=== PATIENT | female | born 1935 ===

== ENCOUNTER 2018-04-10 09:13 | Emergency (ER) | payer OTHER, SELFPAY ==
[2018-04-10] VITALS (7 sets, daily range): BP systolic 111–135; BP diastolic 53–94; PULSE 67–122; RESP 15–20; TEMP 36.4; O2SAT 96–99
--- NOTE | 2018-04-10 09:27 | ED.CHESTPAIN ---
HPI - Chest Pain General Chief Complaint: Chest Pain Stated Complaint: chest pain,difficulty breathing Time Seen by Provider: 04/10/18 09:27 Source: patient and family Mode of arrival: wheelchair Limitations: no limitations History of Present Illness HPI narrative: Patient noticed around 630 this morning that she was having palpitations. She states that she felt an irregular heartbeat and could hear her pulse in her left ear. Patient denies any chest pain; she did notice some lightheadedness when she stood up, and has been states he heard her breathing heavily when she was trying to walk back from the bathroom. Patient states that she did not have any nausea or vomiting, and that she does not feel short of breath laying in the bed. She states this has never happened to her before. She has a history of Cardiology follow-up for mitral valve prolapse, which she was diagnosed with in her young 20s. She denies any recent illnesses. and patient do state that they have had a stressful week, with the patient's father in law and dying, and couple of trips back and forth from [place]. However, she has no prior diagnosis of atrial fibrillation. She states her project consultant is through [facility]. She has formerly seen Dr. Reyna, but will now be seeing somebody else, as Dr. Reyna is no longer the clinic. No other complaints at this time. patient states she is otherwise healthy, and takes no medications. Some years ago, she was seen at a hospital in [facility], or again, and was told there that her troponins were elevated, and that she had had an NE. However, patient has been state that when she returned and saw her project consultant, the project consultant was upset, stating that they never have diagnosed her with an NE. It is not exactly clear what happened under these circumstances, but patient states that the ultimate vertigo it was that she had not had an NE. Severity scale (1-10): 2 ( Level of discomfort from palpitations) Related Data Home Medications Medication Instructions Recorded Confirmed [CALCIUM] #0 12/22/10 [FISH OIL] #0 12/22/10 [VITAMIN D] #0 12/22/10 Previous Rx's Medication Instructions Recorded omeprazole 20 mg PO QDAY #30 cap 02/19/16 potassium chloride 10 meq PO QAM #30 cap 09/28/16 diltiazem HCl [Cardizem CD] 120 mg PO DAILY #20 cap 04/10/18 Allergies Allergy/AdvReac Type Severity Reaction Status Date / Time nitrofurantoin AdvReac Mild N/V, JOINT Verified 04/10/18 09:26 PAIN Review of Systems Review of Systems All systems reviewed & are unremarkable except as noted in HPI and below Constitutional Denies chills, Denies fever(s), Denies lethargy and Denies weakness Eyes Denies change in vision, Denies eye discharge, Denies irritation and Denies loss of vision ENT Ears, Nose, Mouth, and Throat: Denies change in voice, Denies neck pain and Denies sore throat Cardiovascular Reports palpitations, Denies dyspnea and Denies dyspnea on exertion Respiratory Denies cough, Denies dyspnea, Denies dyspnea on exertion and Denies wheezing Gastrointestinal Gastrointestinal: Denies abdominal pain, Denies change in bowel habits, Denies diarrhea, Denies nausea and Denies vomiting Genitourinary Denies hematuria, Denies flank pain, Denies urinary incontinence and Denies urinary urgency Musculoskeletal Denies neck pain Integumentary/Breasts Denies pruritus, Denies erythema, Denies rash and Denies wounds Neurologic Denies confusion, Denies loss of vision and Denies weakness Psychiatric Denies anxiety, Denies confusion, Denies depression, Denies homicidal ideation and Denies suicidal ideation Endocrine Reports palpitations Hematologic/Lymphatic Denies easy bruising Allergic/Immunologic Denies wheezing [facility] Medical History Mitral valve prolapse (Acute) Social History Smoking Status: Never smoker Exam Initial Vital Signs Initial Vital Signs: Vital Signs Temperature 97.5 F L 04/10/18 09:22 Pulse Rate 116 H 04/10/18 09:22 Respiratory Rate 16 04/10/18 09:22 Blood Pressure 135/74 04/10/18 09:22 Pulse Oximetry 99 04/10/18 09:22 Const General: cooperative and well developed Nutritional Appearance: well nourished Orientation: alert, awake, oriented x3 and not confused HENNV Head: normocephalic and atraumatic Ears: external ears normal and TM's normal bilaterally Nose: external nose normal and No nasal discharge Face and sinus: face symmetric and sinus tenderness Mouth: oral mucosae normal and moist mucous membranes Teeth and gingiva: dentition normal Eyes General: appearance normal, both eyes and all related structures Eyelids: eyelids normal Conjunctivae: conjunctivae normal Sclera: sclerae normal Pupils: PERRL EOM: EOM intact bilaterally Neck Neck: normal visual inspection, trachea midline, No lymphadenopathy, No midline deformity and No JVD Lymphatic: No lymphedema Chest Chest: normal inspection of the chest Resp Effort & Inspection: normal respiratory effort, able to speak in complete sentences, no respiratory distress and no use of accessory muscles Auscultation: clear to auscultation bilaterally, no rales, no rhonchi and no wheezes Cardio Rate: tachycardic Rhythm: abnormal rhythm irregularly irregular Heart Sounds: no click, no gallops, no murmurs and no rubs Pulses: normal peripheral pulses GI Inspection: non-distended Palpation: soft, no hepatosplenomegaly, No guarding, No pulsatile mass and No tender Back/Spine/Pelvis Back: No CVA tenderness Cervical Spine: cervical ROM normal and No pain with cervical ROM Thoracic/Lumbar Spine: thoracic and lumbar spine normal to inspection Skin General: no rashes or lesions noted, No jaundice and No petechiae Neuro General: alert, oriented x3, gait normal and no focal motor deficits Speech: speech normal Extrem General: full ROM, no clubbing, cyanosis or edema, no pedal edema and no calf tenderness Psych Appearance: well kempt Mental Status: mental status grossly normal Attitude: cooperative Thought Content: normal and suicidality Judgment: judgment good Course Course Narrative: The patient was worked up in the emergency department, and treated with diltiazem and digoxin for her atrial fibrillation with rapid ventricular response. Labs were unremarkable, and patient ultimately did and responding well to the medication. She did convert back to a normal sinus rhythm with a rate in the 60s. I did discuss with the patient and her the need for follow-up. Patient is established with the [facility] cardiology clinic, and although her original project consultant, Dr. Reyna, has retired, she can follow up with one of his associates, as she has already been instructed to do. Patient states she is feeling much better and is agreeable to this plan. I have given her a prescription for diltiazem as an outpatient. Orders Ordered: Discontinued Medications Digoxin (Lanoxin) 0.125 mg PO NOW ONE Stop: 04/10/18 11:26 Last Admin: 04/10/18 11:35 Dose: 0.125 mg Diltiazem HCl (Cardizem) 5 mg IV NOW ONE Stop: 04/10/18 09:59 Last Admin: 04/10/18 10:06 Dose: 5 mg Diltiazem HCl (Cardizem) 15 mg IV NOW ONE Stop: 04/10/18 11:51 Last Admin: 04/10/18 12:22 Dose: 15 mg Sodium Chloride (Normal Saline 0.9%) 1,000 mls @ 1,000 mls/hr IV BOLUS ONE Stop: 04/10/18 10:57 Last Infusion: 04/10/18 11:16 Dose: 0 mls/hr Admin: 04/10/18 10:06 Dose: 1,000 mls/hr Vital Signs - 8 hr 04/10/18 09:22 Temperature 97.5 F L Pulse Rate 116 H Respiratory Rate 16 Blood Pressure 135/74 Pulse Oximetry 99 MDM - Chest Pain Medical Records Data Attestation: I reviewed the patient's medical records. Lab Data Attestation: I reviewed the patient's lab results. Result diagrams: 04/10/18 09:30 04/10/18 09:30 Lab Results 04/10/18 04/10/18 Range/Units 09:30 09:30 WBC 4.5 (4.5-11.0) X10^3/uL RBC 4.73 (4.0-5.2) X10^6/uL Hgb 15.0 (12.0-16.0) g/dL Hct 44.0 (36-46) % MCV 93.0 (80-100) fL MCH 31.6 (26-34) PG MCHC 34.0 (30-36) % RDW 13.2 (11.6-14.8) % Plt Count 224 (150-400) X10^3/uL Neut % (Auto) 47.3 L (50-75) % Lymph % (Auto) 40.0 (25-40) % [place] % (Auto) 8.6 (3-14) % Eos % (Auto) 3.2 (2-4) % Baso % (Auto) 0.9 (0-2) % Neut # (Auto) 2100 L (2329-5257) /uL Sodium 143 (137-145) mmol/L Potassium 4.4 (3.4-5.1) mmol/L Chloride 106 (98-107) mmol/L Carbon Dioxide 27 (22-32) mmol/L BUN 14 (7-17) mg/dL Creatinine 0.90 (0.52-1.04) mg/dL Estimated GFR > 60.0 (>60) mL/min BUN/Creatinine Ratio 15.6 (6-22) Glucose 126 H (80-110) mg/dL Calcium 9.5 (8.4-10.2) mg/dL Total Bilirubin 0.8 (0.2-1.3) mg/dL AST 55 H (14-36) IU/L ALT 29 (9-52) IU/L Alkaline Phosphatase 82 (38-126) U/L Total Creatine Kinase 53 (30-135) U/L CK-MB (CK-2) TNP CK-MB (CK-2) Rel Index TNP Troponin I < 0.012 (0.01-0.034) ng/mL Total Protein 7.3 (6.3-8.2) g/dL Albumin 4.3 (3.5-5.0) g/dL Globulin 3.0 (1.7-4.1) g/dL Albumin/Globulin Ratio 1.4 (1.0-2.8) ECG Data Attestation: I personally reviewed and interpreted this ECG as follows: ( See below) Interpretation: 12 lead EKG performed on April 10, 2018 at 9:19 a.m., as follows: Irregular ventricular rhythm with a rate of 121 beats per minute P waves undetectable PCR interval unmeasurable QRS duration 91 milliseconds QTC 372 milliseconds borderline right axis deviation occasional PVCs nonspecific ST T wave abnormalities in summary, atrial fibrillation with rapid ventricular response with aberrant conduction or PVCs; borderline right axis deviation; anteroseptal NE, probably old; abnormal EKG as interpreted by ED MDM Narrative Medical decision making narrative: patient was initially treated with IV diltiazem which improved her rate somewhat, but incompletely. Patient's rate was found to be creeping up in to the 120s and so she was given an oral dose of digoxin. She was also given a 2nd dose of diltiazem. After she did achieve conversion back to normal sinus rhythm, I felt she was stable for discharge home. We have discussed both the home management of the patient's condition, as well as the need for follow-up and the usual indications for return. Discharge Plan Departure Patient Disposition: Home Clinical Impression: Atrial fibrillation with RVR Discharge Date/Time: 04/10/18 13:03 Interventions: ED Discharge Assessment Last Done: 04/10/18 13:01 Instructions: DI for Atrial Fibrillation Activity Restrictions/Additional Instructions: Your heart was found to be in an abnormal rhythm today. You have been started on medication for this, but should plan to follow up with your project consultant as soon as possible to discuss a good long-term plan. If you start feeling as though your heart is racing too fast again, please return to the emergency department. Otherwise, please give your project consultant's office a call tomorrow. Prescriptions: New diltiazem HCl [Cardizem CD] 120 mg capsule,extended release 24hr 120 mg PO DAILY Qty: 20 RF: 0 No Action [CALCIUM] Qty: 0 RF: 0 [VITAMIN D] Qty: 0 RF: 0 [FISH OIL] Qty: 0 RF: 0 omeprazole 20 MG capsule,delayed release(DR/EC) 20 mg PO QDAY Qty: 30 RF: 0 potassium chloride 10 MEQ capsule, extended release 10 meq PO QAM Qty: 30 RF: 0 Referrals: [facility] Cardiology [Provider Group]
[2018-04-10] MEDS: SODIUM CHLORIDE 0.9% 1,000 ML 1000 ML IV (10:06)
[2018-04-10] MEDS: dilTIAZem 5 MG/ML SDV IV (10:06)
--- NOTE | 2018-04-10 10:06 | ED_ITS ---
HPI - Chest Pain General Chief Complaint: Chest Pain Stated Complaint: chest pain,difficulty breathing Time Seen by Provider: 04/10/18 09:27 Source: patient and family Mode of arrival: wheelchair Limitations: no limitations History of Present Illness HPI narrative: Patient noticed around 630 this morning that she was having palpitations. She states that she felt an irregular heartbeat and could hear her pulse in her left ear. Patient denies any chest pain; she did notice some lightheadedness when she stood up, and has been states he heard her breathing heavily when she was trying to walk back from the bathroom. Patient states that she did not have any nausea or vomiting, and that she does not feel short of breath laying in the bed. She states this has never happened to her before. She has a history of Cardiology follow-up for mitral valve prolapse, which she was diagnosed with in her young 20s. She denies any recent illnesses. and patient do state that they have had a stressful week, with the patient's father in law and dying, and couple of trips back and forth from [place]. However, she has no prior diagnosis of atrial fibrillation. She states her helper/driver is through [facility]. She has formerly seen Dr. Reyna, but will now be seeing somebody else, as Dr. Reyna is no longer the clinic. No other complaints at this time. patient states she is otherwise healthy, and takes no medications. Some years ago, she was seen at a hospital in [facility], or again, and was told there that her troponins were elevated, and that she had had an FL. However, patient has been state that when she returned and saw her helper/driver, the helper/driver was upset, stating that they never have diagnosed her with an FL. It is not exactly clear what happened under these circumstances, but patient states that the ultimate vertigo it was that she had not had an FL. Severity scale (1-10): 2 ( Level of discomfort from palpitations) Related Data Home Medications Medication Instructions Recorded Confirmed [CALCIUM] #0 12/22/10 [FISH OIL] #0 12/22/10 [VITAMIN D] #0 12/22/10 Previous Rx's Medication Instructions Recorded omeprazole 20 mg PO QDAY #30 cap 02/19/16 potassium chloride 10 meq PO QAM #30 cap 09/28/16 diltiazem HCl [Cardizem CD] 120 mg PO DAILY #20 cap 04/10/18 Allergies Allergy/AdvReac Type Severity Reaction Status Date / Time nitrofurantoin AdvReac Mild N/V, JOINT Verified 04/10/18 09:26 PAIN Review of Systems Review of Systems All systems reviewed & are unremarkable except as noted in HPI and below Constitutional Denies chills, Denies fever(s), Denies lethargy and Denies weakness Eyes Denies change in vision, Denies eye discharge, Denies irritation and Denies loss of vision ENT Ears, Nose, Mouth, and Throat: Denies change in voice, Denies neck pain and Denies sore throat Cardiovascular Reports palpitations, Denies dyspnea and Denies dyspnea on exertion Respiratory Denies cough, Denies dyspnea, Denies dyspnea on exertion and Denies wheezing Gastrointestinal Gastrointestinal: Denies abdominal pain, Denies change in bowel habits, Denies diarrhea, Denies nausea and Denies vomiting Genitourinary Denies hematuria, Denies flank pain, Denies urinary incontinence and Denies urinary urgency Musculoskeletal Denies neck pain Integumentary/Breasts Denies pruritus, Denies erythema, Denies rash and Denies wounds Neurologic Denies confusion, Denies loss of vision and Denies weakness Psychiatric Denies anxiety, Denies confusion, Denies depression, Denies homicidal ideation and Denies suicidal ideation Endocrine Reports palpitations Hematologic/Lymphatic Denies easy bruising Allergic/Immunologic Denies wheezing [facility] Medical History Mitral valve prolapse (Acute) Social History Smoking Status: Never smoker Exam Initial Vital Signs Initial Vital Signs: Vital Signs Temperature 97.5 F L 04/10/18 09:22 Pulse Rate 116 H 04/10/18 09:22 Respiratory Rate 16 04/10/18 09:22 Blood Pressure 135/74 04/10/18 09:22 Pulse Oximetry 99 04/10/18 09:22 Const General: cooperative and well developed Nutritional Appearance: well nourished Orientation: alert, awake, oriented x3 and not confused HENIL Head: normocephalic and atraumatic Ears: external ears normal and TM's normal bilaterally Nose: external nose normal and No nasal discharge Face and sinus: face symmetric and sinus tenderness Mouth: oral mucosae normal and moist mucous membranes Teeth and gingiva: dentition normal Eyes General: appearance normal, both eyes and all related structures Eyelids: eyelids normal Conjunctivae: conjunctivae normal Sclera: sclerae normal Pupils: PERRL EOM: EOM intact bilaterally Neck Neck: normal visual inspection, trachea midline, No lymphadenopathy, No midline deformity and No JVD Lymphatic: No lymphedema Chest Chest: normal inspection of the chest Resp Effort & Inspection: normal respiratory effort, able to speak in complete sentences, no respiratory distress and no use of accessory muscles Auscultation: clear to auscultation bilaterally, no rales, no rhonchi and no wheezes Cardio Rate: tachycardic Rhythm: abnormal rhythm irregularly irregular Heart Sounds: no click, no gallops, no murmurs and no rubs Pulses: normal peripheral pulses GI Inspection: non-distended Palpation: soft, no hepatosplenomegaly, No guarding, No pulsatile mass and No tender Back/Spine/Pelvis Back: No CVA tenderness Cervical Spine: cervical ROM normal and No pain with cervical ROM Thoracic/Lumbar Spine: thoracic and lumbar spine normal to inspection Skin General: no rashes or lesions noted, No jaundice and No petechiae Neuro General: alert, oriented x3, gait normal and no focal motor deficits Speech: speech normal Extrem General: full ROM, no clubbing, cyanosis or edema, no pedal edema and no calf tenderness Psych Appearance: well kempt Mental Status: mental status grossly normal Attitude: cooperative Thought Content: normal and suicidality Judgment: judgment good Course Course Narrative: The patient was worked up in the emergency department, and treated with diltiazem and digoxin for her atrial fibrillation with rapid ventricular response. Labs were unremarkable, and patient ultimately did and responding well to the medication. She did convert back to a normal sinus rhythm with a rate in the 60s. I did discuss with the patient and her the need for follow-up. Patient is established with the [facility] cardiology clinic, and although her original helper/driver, Dr. Reyna, has retired, she can follow up with one of his associates, as she has already been instructed to do. Patient states she is feeling much better and is agreeable to this plan. I have given her a prescription for diltiazem as an outpatient. Orders Ordered: Discontinued Medications Digoxin (Lanoxin) 0.125 mg PO NOW ONE Stop: 04/10/18 11:26 Last Admin: 04/10/18 11:35 Dose: 0.125 mg Diltiazem HCl (Cardizem) 5 mg IV NOW ONE Stop: 04/10/18 09:59 Last Admin: 04/10/18 10:06 Dose: 5 mg Diltiazem HCl (Cardizem) 15 mg IV NOW ONE Stop: 04/10/18 11:51 Last Admin: 04/10/18 12:22 Dose: 15 mg Sodium Chloride (Normal Saline 0.9%) 1,000 mls @ 1,000 mls/hr IV BOLUS ONE Stop: 04/10/18 10:57 Last Infusion: 04/10/18 11:16 Dose: 0 mls/hr Admin: 04/10/18 10:06 Dose: 1,000 mls/hr Vital Signs - 8 hr 04/10/18 09:22 Temperature 97.5 F L Pulse Rate 116 H Respiratory Rate 16 Blood Pressure 135/74 Pulse Oximetry 99 MDM - Chest Pain Medical Records Data Attestation: I reviewed the patient's medical records. Lab Data Attestation: I reviewed the patient's lab results. Result diagrams: 04/10/18 09:30 04/10/18 09:30 Lab Results 04/10/18 04/10/18 Range/Units 09:30 09:30 WBC 4.5 (4.5-11.0) X10^3/uL RBC 4.73 (4.0-5.2) X10^6/uL Hgb 15.0 (12.0-16.0) g/dL Hct 44.0 (36-46) % MCV 93.0 (80-100) fL MCH 31.6 (26-34) PG MCHC 34.0 (30-36) % RDW 13.2 (11.6-14.8) % Plt Count 224 (150-400) X10^3/uL Neut % (Auto) 47.3 L (50-75) % Lymph % (Auto) 40.0 (25-40) % [place] % (Auto) 8.6 (3-14) % Eos % (Auto) 3.2 (2-4) % Baso % (Auto) 0.9 (0-2) % Neut # (Auto) 2100 L (2151-8947) /uL Sodium 143 (137-145) mmol/L Potassium 4.4 (3.4-5.1) mmol/L Chloride 106 (98-107) mmol/L Carbon Dioxide 27 (22-32) mmol/L BUN 14 (7-17) mg/dL Creatinine 0.90 (0.52-1.04) mg/dL Estimated GFR > 60.0 (>60) mL/min BUN/Creatinine Ratio 15.6 (6-22) Glucose 126 H (80-110) mg/dL Calcium 9.5 (8.4-10.2) mg/dL Total Bilirubin 0.8 (0.2-1.3) mg/dL AST 55 H (14-36) IU/L ALT 29 (9-52) IU/L Alkaline Phosphatase 82 (38-126) U/L Total Creatine Kinase 53 (30-135) U/L CK-MB (CK-2) TNP CK-MB (CK-2) Rel Index TNP Troponin I < 0.012 (0.01-0.034) ng/mL Total Protein 7.3 (6.3-8.2) g/dL Albumin 4.3 (3.5-5.0) g/dL Globulin 3.0 (1.7-4.1) g/dL Albumin/Globulin Ratio 1.4 (1.0-2.8) ECG Data Attestation: I personally reviewed and interpreted this ECG as follows: ( See below) Interpretation: 12 lead EKG performed on April 10, 2018 at 9:19 a.m., as follows: Irregular ventricular rhythm with a rate of 121 beats per minute P waves undetectable PCR interval unmeasurable QRS duration 91 milliseconds QTC 372 milliseconds borderline right axis deviation occasional PVCs nonspecific ST T wave abnormalities in summary, atrial fibrillation with rapid ventricular response with aberrant conduction or PVCs; borderline right axis deviation; anteroseptal FL, probably old; abnormal EKG as interpreted by ED MDM Narrative Medical decision making narrative: patient was initially treated with IV diltiazem which improved her rate somewhat, but incompletely. Patient's rate was found to be creeping up in to the 120s and so she was given an oral dose of digoxin. She was also given a 2nd dose of diltiazem. After she did achieve conversion back to normal sinus rhythm, I felt she was stable for discharge home. We have discussed both the home management of the patient's condition, as well as the need for follow-up and the usual indications for return. Discharge Plan Departure Patient Disposition: Home Clinical Impression: Atrial fibrillation with RVR Discharge Date/Time: 04/10/18 13:03 Interventions: ED Discharge Assessment Last Done: 04/10/18 13:01 Instructions: DI for Atrial Fibrillation Activity Restrictions/Additional Instructions: Your heart was found to be in an abnormal rhythm today. You have been started on medication for this, but should plan to follow up with your helper/driver as soon as possible to discuss a good long-term plan. If you start feeling as though your heart is racing too fast again, please return to the emergency department. Otherwise, please give your helper/driver's office a call tomorrow. Prescriptions: New diltiazem HCl [Cardizem CD] 120 mg capsule,extended release 24hr 120 mg PO DAILY Qty: 20 RF: 0 No Action [CALCIUM] Qty: 0 RF: 0 [VITAMIN D] Qty: 0 RF: 0 [FISH OIL] Qty: 0 RF: 0 omeprazole 20 MG capsule,delayed release(DR/EC) 20 mg PO QDAY Qty: 30 RF: 0 potassium chloride 10 MEQ capsule, extended release 10 meq PO QAM Qty: 30 RF: 0 Referrals: [facility] Cardiology [Provider Group]
[2018-04-10 10:12] LABS: Add Manual Diff / Slide Review NO; Basophils Percent Auto 0.9 % (0-2); Eosinophils Percent Auto 3.2 % (2-4); Mean Corpuscular Hemoglobin 31.6 PG (26-34); Monocytes Percent Auto 8.6 % (3-14); Neutrophils Absolute Auto 2100 /uL (3000-5900); Neutrophils Percent Auto 47.3 % (50-75); Platelet Count 224 X10^3/uL (150-400); Red Blood Cell Count 4.73 X10^6/uL (4.0-5.2); Red Cell Distribution Width 13.2 % (11.6-14.8); White Blood Cell Count 4.5 X10^3/uL (4.5-11.0)
[2018-04-10 10:16] LABS: Alanine Aminotransferase 29 IU/L (9-52); Albumin 4.3 g/dL (3.5-5.0); Albumin Globulin Ratio 1.4 (1.0-2.8); Alkaline Phosphatase 82 U/L (38-126); Aspartate Aminotransferase 55 IU/L (14-36); BUN Creatinine Ratio 15.6 (6-22); Bilirubin Total 0.8 mg/dL (0.2-1.3); Blood Urea Nitrogen 14 mg/dL (7-17); Calcium 9.5 mg/dL (8.4-10.2); Carbon Dioxide 27 mmol/L (22-32); Chloride 106 mmol/L (98-107); Creatine Kinase 53 U/L (30-135); Estimated Glomerular Filt Rate > 60.0 mL/min (>60); Glucose 126 mg/dL (80-110); HEMOLYSIS 20 (0-50); Potassium 4.4 mmol/L (3.4-5.1); Sodium 143 mmol/L (137-145); Total Protein 7.3 g/dL (6.3-8.2)
[2018-04-10 10:37] LABS: Troponin I < 0.012 ng/mL (0.01-0.034)
[2018-04-10] MEDS: DIGOXIN 0.125 MG TABLET PO (11:35)
[2018-04-10] MEDS: dilTIAZem 5 MG/ML SDV 15 MG IV (12:22)
--- NOTE | 2018-04-12 14:49 | PC.NURSE ---
Pt states that she has followed up with pcp. Pt states everything seems to be find and is also going to followup with cardiology. Pt states that she really appreciates what we did for her,the whole staff was great.
== END 2018-04-10 13:03 | disposition home or self-care (01) ==
PROVIDERS: Emergency Provider Emergency Medicine
DX: I48.91 Unspecified atrial fibrillation (principal)
CPT/HCPCS: 36591; 80053; 82550; 84484; 85025; 93005; 96361; 96374; 96376; 99283; 99284

== ENCOUNTER → 2018-06-07 11:51 | Outpatient (CLI) | payer OTHER, SELFPAY ==
--- NOTE | 2018-06-07 | DI.MG.S_ITS ---
BILATERAL DIGITAL SCREENING MAMMOGRAM 3D/2D WITH CAD: 06/07/2018 CLINICAL: Routine screening. Comparison is made to exams dated: 04/12/2017 mammogram, 03/31/2016 mammogram, and 07/17/2010 mammogram - [facility]. The tissue of both breasts is heterogeneously dense. This may lower the sensitivity of mammography. Current study was also evaluated with a Computer Aided Detection (CAD) system. There is a benign biopsy clip in the right breast. No significant masses, calcifications, or other findings are seen in either breast. There has been no significant interval change. IMPRESSION: NEGATIVE There is no mammographic evidence of malignancy. A 1 year screening mammogram is recommended. This exam was interpreted at Station ID: [id number]. NOTE: For mammograms, a report in lay terms will be sent to the patient. Approximately 15% of breast malignancies will not be visualized mammographically. In the management of a palpable breast mass, a negative mammogram must not discourage biopsy of a clinically suspicious lesion. Electronically Signed By: Hany cole/linda:06/07/2018 13:56:04 letter sent: Normal Exam ACR BI-RADS Category 1: Negative [id number]
== END ==
PROVIDERS: PCP Physician Assistant; Visit Provider Physician Assistant
DX: Z12.31 Encounter for screening mammogram for malignant neoplasm of breast (principal)
CPT/HCPCS: 77063; 77067

== ENCOUNTER → 2018-09-12 13:31 | Outpatient (CLI) | payer OTHER, SELFPAY ==
--- NOTE | 2018-09-12 | DI.US.S_ITS ---
PROCEDURE: US RETRO PERITONEAL LIMITED INDICATIONS: ABDOMINAL AORTIC ANEURYSM WITHOUT RUPTURE TECHNIQUE: Real time scanning was performed of the aorta and iliac arteries, with image documentation. COMPARISON: None. FINDINGS: Aorta: Proximal aortic diameter measures 1.9 cm. Mid-aorta measures 1.7 cm. Distal aortic diameter is 1.6 cm. Iliac arteries: Right common iliac artery measures 0.9 cm. Left common iliac artery measures 1.0 cm. IMPRESSION: No aneurysm found, no suspicion for aortic dissection. Minimal scattered atherosclerotic plaquing. Dictated by: David Vanessa M.D. on 09/12/2018 at 15:24 Approved by: David Vanessa M.D. on 09/12/2018 at 15:25
== END ==
PROVIDERS: PCP Physician Assistant; Visit Provider Physician Assistant
DX: I71.4 Abdominal aortic aneurysm, without rupture (principal)
CPT/HCPCS: 76775

== ENCOUNTER → 2019-03-03 13:58 | Outpatient (CLI) | payer OTHER, SELFPAY ==
--- NOTE | 2019-03-03 | DI.RAD.S_ITS ---
PROCEDURE: XR KNEE RT 3V INDICATIONS: PAIN TECHNIQUE: 3 views of the knee were acquired. COMPARISON: [facility], , KNEE 3V RIGHT, 04/18/2007, 9:57. FINDINGS: Bones: No fractures or dislocations. No suspicious bony lesions. There is worsening degenerative osteoarthritis at the right knee joint, best seen at the lateral facet of the patellofemoral joint were no [id number] articulation is present Soft tissues: No joint effusion. No suspicious soft tissue calcifications. IMPRESSION: No acute trauma found. Worsening degenerative knee joint osteoarthritis most convincingly demonstrated at the lateral facet of the patellofemoral joint where previously mild joint space narrowing was present but currently there now is [id number] articulation between the articular surfaces. Dictated by: David Vanessa M.D. on 03/03/2019 at 15:07 Approved by: David Vanessa M.D. on 03/03/2019 at 15:08
[2019-03-03 15:00] LABS: Add Manual Diff / Slide Review NO; Basophils Absolute Auto 100 /uL (0-100); Basophils Percent Auto 0.7 % (0-2); Eosinophils Absolute Auto 0 /uL (0-450); Eosinophils Percent Auto 0.2 % (2-4); Hematocrit 40.4 % (36-46); Hemoglobin 13.5 g/dL (12.0-16.0); Lymphocytes Absolute Auto 800 /uL (1100-4500); Lymphocytes Percent Auto 11.8 % (25-40); Mean Corpuscular HGB Conc 33.3 % (30-36); Mean Corpuscular Hemoglobin 30.9 PG (26-34); Mean Corpuscular Volume 92.8 fL (80-100); Monocytes Absolute Auto 800 /uL (0-900); Monocytes Percent Auto 11.5 % (3-14); Neutrophils Absolute Auto 5400 /uL (1500-7000); Neutrophils Percent Auto 75.8 % (50-75); Platelet Count 221 X10^3/uL (150-400); Red Blood Cell Count 4.35 X10^6/uL (4.0-5.2); Red Cell Distribution Width 13.2 % (11.6-14.8); White Blood Cell Count 7.2 X10^3/uL (4.5-11.0)
[2019-03-03 15:27] LABS: Erythrocyte Sedimentation Rate 23 MM/HR (0-20)
[2019-03-03 16:05] LABS: Alanine Aminotransferase 15 IU/L (9-52); Albumin 4.2 g/dL (3.5-5.0); Albumin Globulin Ratio 1.2 (1.0-2.8); Alkaline Phosphatase 80 U/L (38-126); Aspartate Aminotransferase 31 IU/L (14-36); Blood Urea Nitrogen 12 mg/dL (7-17); C-Reactive Protein Quant 2.7 mg/dL (<1.0); Calcium 9.4 mg/dL (8.4-10.2); Carbon Dioxide 29 mmol/L (22-32); Chloride 100 mmol/L (98-107); Estimated Glomerular Filt Rate > 60.0 mL/min (>60); Globulin 3.4 g/dL (1.7-4.1); Glucose 100 mg/dL (80-110); HEMOLYSIS < 15 (0-50); Potassium 4.3 mmol/L (3.4-5.1); Sodium 136 mmol/L (137-145); Total Protein 7.6 g/dL (6.3-8.2); Uric Acid 4.7 mg/dL (2.5-6.2)
== END ==
PROVIDERS: PCP Physician Assistant; Visit Provider Physician Assistant
DX: M25.561 Pain in right knee (principal)
CPT/HCPCS: 36415; 73562; 80053; 84550; 85025; 85651; 86140

== ENCOUNTER → 2019-04-04 13:10 | Outpatient (ROUT) | payer OTHER, SELFPAY | PROVIDERS: PCP Physician Assistant; Visit Provider Physician Assistant | DX: N39.0 Urinary tract infection, site not specified (principal) | CPT/HCPCS: 87086 ==

== ENCOUNTER 2019-06-10 10:02 | Emergency (ER) | payer OTHER, SELFPAY ==
[2019-06-10 10:11] VITALS: BP 167/76; PULSE 67; RESP 14; TEMP 36.3; O2SAT 100; BMI 20.1
--- NOTE | 2019-06-10 10:11 | ED_ITS ---
HPI - GI Bleed General Chief complaint: GI Bleed Stated complaint: BLACK STOOL Time Seen by Provider: 06/10/19 10:11 Source: patient Mode of arrival: Ambulatory Limitations: no limitations History of Present Illness HPI Narrative: Patient is a trung 84-year-old female on Xarelto for atrial fibrillation presenting with black stool, she has had 1 episode this morning. She brought a sample on toilet paper. She denies any bright red blood she has no abdominal pain. She denies any a pain vomiting dizziness lightheadedness chest pain or shortness of breath. She is here because the nursing hotline told her to come. She states she is not taking any iron and has not taken any recent Pepto-Bismol Severity: mild Related Data Home Medications Medication Instructions Recorded Confirmed [CALCIUM] #0 12/22/10 [FISH OIL] #0 12/22/10 [VITAMIN D] #0 12/22/10 diltiazem HCl 120 mg 120 mg PO .PRN cap 11/16/18 capsule,extended release 24 hr omeprazole 20 mg capsule,delayed 20 mg PO .prn cap 11/16/18 release Previous Rx's Medication Instructions Recorded rivaroxaban 20 mg tablet 20 mg PO DAILY #90 tab 11/16/18 varicella-zoster [id number] (PF) 50 0.5 ml IM ONCE #1 each 11/16/18 mcg/0.5 mL IM susp, kit Allergies Allergy/AdvReac Type Severity Reaction Status Date / Time nitrofurantoin AdvReac Mild N/V, JOINT Verified 11/16/18 10:43 PAIN Review of Systems Review of Systems Narrative: GENERAL: Denies chills, fatigue, malaise, fever, sweats, travel HEENT: Denies sinus pain, ear pain, sore throat, difficulty swallowing, neck pa in RESPIRATORY: Denies dyspnea, cough, wheezing, hemoptysis, sputum. CARDIOVASCULAR: Denies chest pain, palpitations, orthopnea, edema GASTROINTESTINAL: See HPI : Denies dysuria, frequency, incontinence, hematuria, urinary retention, flank pain. MUSCULOSKELETAL: Denies weakness, joint pain, or bony pain SKIN: No rash, no erythema, no pruritus NEUROLOGIC: Denies weakness, dizziness, headache, numbness, change in speech, confusion PSYCHIATRIC: No concerning psychosocial issues. 12 point review of systems is negative except for those stated above and HPI Patient History Medical History Anemia (Chronic) Atrial fibrillation (Chronic ~2018) Frequent UTI (Chronic) GERD (gastroesophageal reflux disease) (Chronic ~2016) Headache (Chronic) Hearing loss (Chronic) Hepatitis (Resolved ~1943) Herpes (Resolved) History of recurrent ear infection (Chronic) History of varicose veins (Chronic) Measles (Resolved) Mitral valve prolapse (Chronic) Mumps (Resolved) Osteoarthritis (Chronic ~1994) Osteoporosis (Chronic ~1987) Peripheral vascular disease (Chronic) Shoulder pain (Chronic) Vision disorder (Chronic) Surgical History Anesthesia (Resolved) History of bladder surgery (Resolved) History of tonsillectomy and adenoidectomy (Resolved ~1951) Family History Father History of heart disease Mother History of heart disease Social History Smoking Status: Never smoker Smoking Status: Never smoker alcohol intake frequency: holidays/special occasions only Substance Use Type: marijuana Exam Initial Vital Signs Initial Vital Signs: Vital Signs Temperature 97.3 F L 06/10/19 10:11 Pulse Rate 67 06/10/19 10:11 Respiratory Rate 14 06/10/19 10:11 Blood Pressure 167/76 H 06/10/19 10:11 Pulse Oximetry 100 06/10/19 10:11 GENERAL: Alert pleasant well-appearing female and in no acute distress. HEENT: Head atraumatic,EOMI, pupils reactive, face symmetric, moist mucous membranes CARDIOVASCULAR: Regular rate and rhythm without murmurs, rubs or gallops. RESPIRATORY: Breath sounds equal bilaterally, no wheezes rales or rhonchi. ABDOMEN: Soft, nontender. Normoactive bowel sounds all 4 quadrants. No guarding or rebound. RECTAL: No gross blood, Hemoccult negative both on digital exam and on tissue paper : No flank pain EXTREMITIES: Normal range of motion, no clubbing or edema. Neurovascularly intact NEUROLOGICAL: Alert and oriented x4.Normal gait and speech. Cranial nerves II through XII grossly intact. SKIN: Warm, dry, no laceration, no petechiae, no rashes or lesions. Course Orders Ordered: ED Orders 06/10/19 10:13 EKG-12 Lead Routine 06/10/19 10:35 Complete Blood Count AUTO DIFF Stat Comprehensive Metabolic Panel Stat Partial Thromboplastin Time Stat Prothrombin Time INR Stat Type and Screen Stat Vital Signs Vital signs: Vital Signs - 8 hr 06/10/19 11:00 06/10/19 12:30 Pulse Rate 69 61 Respiratory Rate 18 21 Blood Pressure [Right Arm] 155/68 H 145/66 H Pulse Oximetry 99 99 MDM - GI Bleed Lab Data Attestation: I reviewed the patient's lab results. Result diagrams: 06/10/19 10:35 06/10/19 10:35 Labs: Lab Results 06/10/19 06/10/19 06/10/19 Range/Units 10:35 10:35 10:35 WBC 3.7 L (4.5-11.0) X10^3/uL RBC 4.34 (4.0-5.2) X10^6/uL Hgb 13.4 (12.0-16.0) g/dL Hct 40.6 (36-46) % MCV 93.5 (80-100) fL MCH 30.8 (26-34) PG MCHC 33.0 (30-36) % RDW 13.3 (11.6-14.8) % Plt Count 200 (150-400) X10^3/uL Neut % (Auto) 58.9 (50-75) % Lymph % (Auto) 28.6 (25-40) % [place] % (Auto) 8.9 (3-14) % Eos % (Auto) 2.7 (2-4) % Baso % (Auto) 0.9 (0-2) % Neut # (Auto) 2200 (8896-8358) /uL Lymph # (Auto) 1000 L (5922-3765) /uL [place] # (Auto) 300 (0-900) /uL Eos # (Auto) 100 (0-450) /uL Baso # (Auto) 0 (0-100) /uL PT 12.5 (10.1-12.7) SECONDS INR 1.1 (0.9-1.3) APTT 37 H (26.4-36.2) SECONDS Sodium 139 (137-145) mmol/L Potassium 4.3 (3.4-5.1) mmol/L Chloride 105 (98-107) mmol/L Carbon Dioxide 29 (22-32) mmol/L BUN 15 (7-17) mg/dL Creatinine 0.80 (0.52-1.04) mg/dL Estimated GFR > 60.0 (>60) mL/min BUN/Creatinine Ratio 18.8 (6-22) Glucose 88 (80-110) mg/dL Calcium 9.2 (8.4-10.2) mg/dL Total Bilirubin 0.8 (0.2-1.3) mg/dL AST 35 (14-36) IU/L ALT 20 (<35) IU/L Alkaline Phosphatase 71 (38-126) U/L Total Protein 7.4 (6.3-8.2) g/dL Albumin 4.2 (3.5-5.0) g/dL Globulin 3.2 (1.7-4.1) g/dL Albumin/Globulin Ratio 1.3 (1.0-2.8) Blood Type Antibody Screen 06/10/19 Range/Units 10:35 WBC (4.5-11.0) X10^3/uL RBC (4.0-5.2) X10^6/uL Hgb (12.0-16.0) g/dL Hct (36-46) % MCV (80-100) fL MCH (26-34) PG MCHC (30-36) % RDW (11.6-14.8) % Plt Count (150-400) X10^3/uL Neut % (Auto) (50-75) % Lymph % (Auto) (25-40) % [place] % (Auto) (3-14) % Eos % (Auto) (2-4) % Baso % (Auto) (0-2) % Neut # (Auto) (0620-5100) /uL Lymph # (Auto) (9555-4615) /uL [place] # (Auto) (0-900) /uL Eos # (Auto) (0-450) /uL Baso # (Auto) (0-100) /uL PT (10.1-12.7) SECONDS INR (0.9-1.3) APTT (26.4-36.2) SECONDS Sodium (137-145) mmol/L Potassium (3.4-5.1) mmol/L Chloride (98-107) mmol/L Carbon Dioxide (22-32) mmol/L BUN (7-17) mg/dL Creatinine (0.52-1.04) mg/dL Estimated GFR (>60) mL/min BUN/Creatinine Ratio (6-22) Glucose (80-110) mg/dL Calcium (8.4-10.2) mg/dL Total Bilirubin (0.2-1.3) mg/dL AST (14-36) IU/L ALT (<35) IU/L Alkaline Phosphatase (38-126) U/L Total Protein (6.3-8.2) g/dL Albumin (3.5-5.0) g/dL Globulin (1.7-4.1) g/dL Albumin/Globulin Ratio (1.0-2.8) Blood Type AB Positive Antibody Screen Negative Point of Care Testing Stool Occult Blood Negative MDM Narrative Medical decision making narrative: Negative hemoglobin and hematocrit are stable. At this time no evidence of GI bleed. Discharge Plan Departure Patient Disposition: Home Clinical Impression: Feared complaint without diagnosis Discharge Date/Time: 06/10/19 12:52 Instructions: Gastrointestinal Bleeding Activity Restrictions/Additional Instructions: *You have been diagnosed with no internal bleeding was found *What to do: Blood work overall is reassuring. No blood in stool is identified *Continue to take medications as directed *Follow up with your primary care provider in 2-3 days *Return to ER if you should have persistent multiple black stools, bright red blood, abdominal pain dizziness lightheadedness or any new, worsening or concerning symptoms Prescriptions: No Action [CALCIUM] Qty: 0 RF: 0 [VITAMIN D] Qty: 0 RF: 0 [FISH OIL] Qty: 0 RF: 0 diltiazem HCl [Cardizem CD] 120 mg capsule,extended release 24hr 120 mg PO .PRN RF: 0 omeprazole 20 mg capsule,delayed release(DR/EC) 20 mg PO .prn RF: 0 Xarelto 20 mg tablet 20 mg PO DAILY Qty: 90 RF: 0 Shingrix (PF) 50 mcg/0.5 mL suspension for reconstitution 0.5 ml IM ONCE Qty: 1 RF: 0 Referrals: Maryjo Zamora PA-C [Primary Care Provider] -
[2019-06-10 10:30] VITALS: BP 171/92; PULSE 56; RESP 14; O2SAT 100
[2019-06-10 10:59] LABS: Add Manual Diff / Slide Review NO; Basophils Absolute Auto 0 /uL (0-100); Basophils Percent Auto 0.9 % (0-2); Eosinophils Absolute Auto 100 /uL (0-450); Eosinophils Percent Auto 2.7 % (2-4); Hematocrit 40.6 % (36-46); Hemoglobin 13.4 g/dL (12.0-16.0); Lymphocytes Absolute Auto 1000 /uL (1100-4500); Lymphocytes Percent Auto 28.6 % (25-40); Mean Corpuscular Hemoglobin 30.8 PG (26-34); Mean Corpuscular Volume 93.5 fL (80-100); Monocytes Absolute Auto 300 /uL (0-900); Monocytes Percent Auto 8.9 % (3-14); Neutrophils Absolute Auto 2200 /uL (1500-7000); Neutrophils Percent Auto 58.9 % (50-75); Platelet Count 200 X10^3/uL (150-400); Red Blood Cell Count 4.34 X10^6/uL (4.0-5.2); Red Cell Distribution Width 13.3 % (11.6-14.8); White Blood Cell Count 3.7 X10^3/uL (4.5-11.0)
[2019-06-10 11:00] VITALS: BP 155/68; PULSE 69; RESP 18; O2SAT 99
[2019-06-10 11:02] LABS: INR 1.1 (0.9-1.3); Prothrombin Time 12.5 SECONDS (10.1-12.7)
[2019-06-10 11:05] LABS: PTT Partial Thromboplastin Tim 37 SECONDS (26.4-36.2)
[2019-06-10 11:06] LABS: Alanine Aminotransferase 20 IU/L (<35); Albumin 4.2 g/dL (3.5-5.0); Albumin Globulin Ratio 1.3 (1.0-2.8); Alkaline Phosphatase 71 U/L (38-126); Aspartate Aminotransferase 35 IU/L (14-36); BUN Creatinine Ratio 18.8 (6-22); Bilirubin Total 0.8 mg/dL (0.2-1.3); Blood Urea Nitrogen 15 mg/dL (7-17); Calcium 9.2 mg/dL (8.4-10.2); Carbon Dioxide 29 mmol/L (22-32); Chloride 105 mmol/L (98-107); Estimated Glomerular Filt Rate > 60.0 mL/min (>60); Globulin 3.2 g/dL (1.7-4.1); Glucose 88 mg/dL (80-110); HEMOLYSIS 34 (0-50); Potassium 4.3 mmol/L (3.4-5.1); Sodium 139 mmol/L (137-145); Total Protein 7.4 g/dL (6.3-8.2)
[2019-06-10 12:30] VITALS: BP 145/66; PULSE 61; RESP 21; O2SAT 99
== END 2019-06-10 12:52 | disposition home or self-care (01) ==
PROVIDERS: Emergency Provider Emergency Medicine; PCP Physician Assistant
DX: K92.1 Melena (principal)
CPT/HCPCS: 36415; 80053; 82272; 85025; 85610; 85730; 86850; 86900; 86901; 93005; 99284

== ENCOUNTER → 2020-01-12 08:52 | Outpatient (CLI) | payer OTHER, SELFPAY ==
--- NOTE | 2020-01-12 | DI.ECHO.S_ITS ---
[facility]---------+ [facility] +---------+ : : [address] [place] : : : : [phone] : : : : Phone: [phone]+ Echocardiogram Report + + :Name: RANDELL RODRÍGUEZ Study Date: 01/12/2020 Height: 62 in : :[facility] Weight: 114 lb : : Gender: Female BSA: 1.5 m2 : :: 1935 Age: 84 yrs BP: 111/80 mmHg: :Reason For Study: Atrial fibrillation - paroxysmal : :Ordering Physician: : :Vipul Rivas M.D. Performed By: Tere Page : + + Interpretation Summary The mitral valve leaflets appear myxomatous. There is moderate bileaflet prolapse. Visually and by color Doppler only, the mitral regurgitation is not severe; however, the ject is eccentric and wraps in the posterior left atrium with Coanda effect. There is systolic flow reversal in the pulmonary venin flow, indicating severe mitral regurgitation. No significant pulmonary hypertension. The LVEF is >65%. Patient appears to be now in atrial fibrillation which is new compared to the prior study. No other significant change. Procedure: A two-dimensional transthoracic echocardiogram with color flow and Doppler was performed. The study quality was technically adequate. Comparison is made with the echocardiogram of 07/01/2018. The patient was in atrial fibrillation with heart rates between 81-121 bpm during the exam. Left Ventricle: The left ventricle is normal in size. Proximal septal thickening is noted. The ejection fraction is estimated to be 65-70%. There are no focal wall motion abnormalities. There is a significant dyssynchronous contraction pattern, consistent with a conduction abnormality. Diastolic function could not be accurately assessed due to atrial fibrillation. Right Ventricle: The right ventricle is normal size. The right ventricle is hyperdynamic. Atria: The left atrium is severely dilated. The left atrium has mildly increased in size since the prior echo exam. The right atrium is mildly dilated. The right atrium has significantly increased in size since the prior echo exam. There is no Doppler evidence for an interatrial shunt. Mitral Valve: The mitral valve leaflets appear moderately thickened, but open well. The mitral valve leaflets appear myxomatous. Mitral valve prolapse is present. There is severe mitral regurgitation. The mitral regurgitant jet is eccentrically directed. Aortic Valve: The aortic valve is trileaflet. The aortic valve opens well. There is trace aortic regurgitation. Tricuspid Valve: There appears to be borderline prolapse of the tricuspid valve. There is mild tricuspid regurgitation. The right ventricular systolic pressure is estimated to be at least 30 mmHg based on an estimated right atrial pressure of 8 mm Hg. Pulmonic Valve: The pulmonic valve is not well seen, but is grossly normal. There is trace pulmonic regurgitation. Great Vessels: The aortic root is normal size. The ascending aorta is normal in size. The pulmonary artery is not well visualized, but is probably normal size. The IVC is dilated (diameter is greater than 2.1 cm) yet it collapses greater than 50% with a sniff. This suggests a right atrial pressure of 8 mm Hg. Pericardium/ Pleura There is no pericardial effusion. There is no pleural effusion. MMode/2D Measurements & Calculations LVIDd: 4.3 cm LVOT diam: 1.8 cm LVIDs: 2.5 cm Ao root diam: 3.5 cm FS: 40.8 % asc Aorta Diam: 3.1 cm IVSd: 1.0 cm LVPWd: 0.71 cm LV rider. diameter/BSA (cm/m^2): 2.8 LV sys. diameter/BSA (cm/m^2): 1.7 LA A2 area: 28.3 cm2 RA long axis: 4.6 cm LA A4 area: 20.9 cm2 RA area: 15.8 cm2 LA length (vol): 5.3 cm RA vol: 46.0 ml LA vol: 94.0 ml RA : 30.5 ml/m2 LA vol index: 62.4 ml/m2 IVC diam: 2.2 cm RVD1 (basal): 3.1 cm Doppler Measurements & Calculations Ao V2 max: 127.8 cm/sec LVOT Max Christophe: 68.1 cm/sec Ao V2 mean: 83.8 cm/sec LV V1 max P.9 mmHg Ao max P.6 mmHg LV V1 VTI: 8.9 cm Ao mean P.2 mmHg CARLOS EDUARDO(I,D): 1.6 cm2 Ao V2 VTI: 14.7 cm CARLOS EDUARDO(V,D): 1.4 cm2 sev ratio: 0.61 CARLOS EDUARDO indexed to BSA (cm^2/m^2): 1.0 AI P1/2t: 516.3 msec AI dec slope: 262.7 cm/sec2 MV P1/2t: 62.3 msec TR max christophe: 233.4 cm/sec MVA(VTI): 0.69 cm2 TR max P.9 mmHg PA V2 max: 70.0 cm/sec PA V2 mean: 47.6 cm/sec PA mean P.1 mmHg PA Accel Time: 0.09 sec MV V2 mean: 103.8 cm/sec MV P1/2t max christophe: 131.6 cm/sec MV mean P.1 mmHg MVA(P1/2t): 3.5 cm2 MV V2 VTI: 33.2 cm SV(LVOT): 22.9 ml Electronically signed by: Vipul Rivas M.D. on Reading Physician:01/15/2020 05:13 PM
== END ==
PROVIDERS: PCP Physician Assistant; Referring Provider Hospitalist; Visit Provider Hospitalist
DX: I08.1 Rheumatic disorders of both mitral and tricuspid valves (principal); I48.0 Paroxysmal atrial fibrillation
CPT/HCPCS: 93306

== ENCOUNTER → 2020-02-29 15:29 | Outpatient (ROUT) | payer OTHER, SELFPAY ==
[2020-02-29 16:01] LABS: Add Manual Diff / Slide Review NO; Basophils Absolute Auto 0 /uL (0-100); Basophils Percent Auto 0.4 % (0-2); Eosinophils Absolute Auto 100 /uL (0-450); Hematocrit 40.2 % (36-46); Hemoglobin 13.1 g/dL (12.0-16.0); Lymphocytes Absolute Auto 900 /uL (1100-4500); Lymphocytes Percent Auto 25.2 % (25-40); Mean Corpuscular HGB Conc 32.5 % (30-36); Mean Corpuscular Hemoglobin 30.3 PG (26-34); Mean Corpuscular Volume 93.2 fL (80-100); Monocytes Absolute Auto 400 /uL (0-900); Monocytes Percent Auto 9.8 % (3-14); Neutrophils Absolute Auto 2300 /uL (1500-7000); Neutrophils Percent Auto 62.6 % (50-75); Platelet Count 199 X10^3/uL (150-400); Red Blood Cell Count 4.31 X10^6/uL (4.0-5.2); Red Cell Distribution Width 14.1 % (11.6-14.8); White Blood Cell Count 3.7 X10^3/uL (4.5-11.0)
[2020-02-29 16:20] LABS: Alanine Aminotransferase 20 IU/L (<35); Albumin Globulin Ratio 1.3 (1.0-2.8); Alkaline Phosphatase 68 U/L (38-126); Aspartate Aminotransferase 34 IU/L (14-36); BUN Creatinine Ratio 19.5 (6-22); Bilirubin Total 0.7 mg/dL (0.2-1.3); Blood Urea Nitrogen 16 mg/dL (7-17); Calcium 9.3 mg/dL (8.4-10.2); Carbon Dioxide 27 mmol/L (22-32); Chloride 106 mmol/L (98-107); Cholesterol 198 mg/dL (140-199); Estimated Glomerular Filt Rate > 60.0 mL/min (>60); Glucose 72 mg/dL (80-110); HDL Cholesterol 80 mg/dL (40-60); HEMOLYSIS < 15 (0-50); LDL Cholesterol Calculated 96 mg/dL (<100); Sodium 142 mmol/L (137-145); Triglycerides 112 mg/dL (35-150)
== END ==
PROVIDERS: PCP Physician Assistant; Visit Provider Physician Assistant
DX: I83.93 Asymptomatic varicose veins of bilateral lower extremities (principal); I34.1 Nonrheumatic mitral (valve) prolapse; M81.0 Age-related osteoporosis without current pathological fracture; I48.0 Paroxysmal atrial fibrillation
CPT/HCPCS: 80053; 80061; 85025

== ENCOUNTER → 2020-03-22 12:28 | Outpatient (CLI) | payer OTHER, SELFPAY | PROVIDERS: PCP Physician Assistant; Referring Provider Physician Assistant; Visit Provider Physician Assistant | DX: M85.852 Other specified disorders of bone density and structure, left thigh (principal); Z78.0 Asymptomatic menopausal state; Z82.62 Family history of osteoporosis | CPT/HCPCS: 77080 ==

== ENCOUNTER 2020-06-07 13:43 | Emergency (ER) | payer OTHER, SELFPAY ==
[2020-06-07] VITALS (20 sets, daily range): BP systolic 112–150; BP diastolic 59–101; PULSE 77–118; RESP 12–28; TEMP 36.2; O2SAT 67–100
--- NOTE | 2020-06-07 14:05 | DI.RAD.S_ITS ---
PROCEDURE: XR CHEST 1V INDICATIONS: shortness of breath TECHNIQUE: One view of the chest was acquired. COMPARISON: None. FINDINGS: Surgical changes and devices: None. Lungs and pleura: Lungs are clear. No pleural effusions or pneumothorax. Mediastinum: Mediastinal contours appear normal. Heart size is normal. Bones and chest wall: No suspicious bony lesions. Overlying soft tissues appear unremarkable. IMPRESSION: No acute cardiopulmonary disease. Dictated by: Angelica Cruz M.D. on 06/07/2020 at 15:09 Approved by: Angelica Cruz M.D. on 06/07/2020 at 15:09
[2020-06-07 14:22] LABS: Add Manual Diff / Slide Review NO; Basophils Absolute Auto 100 /uL (0-100); Basophils Percent Auto 1.1 % (0-2); Eosinophils Absolute Auto 100 /uL (0-450); Hematocrit 43.7 % (36-46); Hemoglobin 14.2 g/dL (12.0-16.0); Lymphocytes Absolute Auto 1700 /uL (1100-4500); Lymphocytes Percent Auto 27.5 % (25-40); Mean Corpuscular HGB Conc 32.5 % (30-36); Mean Corpuscular Hemoglobin 30.5 PG (26-34); Mean Corpuscular Volume 93.9 fL (80-100); Monocytes Absolute Auto 500 /uL (0-900); Monocytes Percent Auto 7.8 % (3-14); Neutrophils Absolute Auto 3800 /uL (1500-7000); Neutrophils Percent Auto 62.6 % (50-75); Platelet Count 231 X10^3/uL (150-400); Red Blood Cell Count 4.66 X10^6/uL (4.0-5.2); Red Cell Distribution Width 13.5 % (11.6-14.8); White Blood Cell Count 6.1 X10^3/uL (4.5-11.0)
[2020-06-07 14:28] LABS: INR 1.2 (0.9-1.3); Prothrombin Time 13.4 SECONDS (10.1-12.7)
[2020-06-07 14:37] LABS: Alanine Aminotransferase 20 IU/L (<35); Albumin 4.3 g/dL (3.5-5.0); Albumin Globulin Ratio 1.3 (1.0-2.8); Alkaline Phosphatase 66 U/L (38-126); Aspartate Aminotransferase 36 IU/L (14-36); BUN Creatinine Ratio 16.3 (6-22); Bilirubin Total 0.8 mg/dL (0.2-1.3); Blood Urea Nitrogen 14 mg/dL (7-17); Calcium 9.1 mg/dL (8.4-10.2); Carbon Dioxide 24 mmol/L (22-32); Chloride 109 mmol/L (98-107); Estimated Glomerular Filt Rate > 60.0 mL/min (>60); Globulin 3.3 g/dL (1.7-4.1); Glucose 105 mg/dL (80-110); HEMOLYSIS 75 (0-50); Potassium 4.7 mmol/L (3.4-5.1); Sodium 138 mmol/L (137-145); Total Protein 7.6 g/dL (6.3-8.2)
[2020-06-07 14:45] LABS: NT-proBNP (BNP-Adult 18+) 5320 pg/mL (<450)
--- NOTE | 2020-06-07 14:57 | ED.GENADULT ---
HPI - General Adult General Chief complaint: Shortness of Breath/Dyspnea Stated complaint: weakness,dizzyness,low blood pressures Time Seen by Provider: 06/07/20 14:20 Source: patient Mode of arrival: Ambulatory History of Present Illness HPI narrative: 85-year-old woman who noticed some increased unsteadiness yesterday without fevers, cough, dyspnea, orthopnea or lower extremity edema. She perhaps had some mild palpitations but isn't entirely sure. She does note that she has had atrial fibrillation in the past and always felt that she was clearly able to identify when the rapid heart rate started. Records seem to indicate that she is chronically in atrial fibrillation. The diltiazem that she has available she uses only as needed if her heart rate is above 120 and has not used it for an extended period of time. She is anticoagulated on Xarelto. She does not recall a prior history of congestive heart failure. She and her noted that her blood pressure had been slightly low over the past 24 hours with systolics in the 112 range. She has been trying to increase fluids thinking that she was dehydrated. She describes no cough but when she walks across the room she notes slight exertional dyspnea. She has not had any chest pain, no abdominal pain, flank pain, diarrhea, vomiting or dysuria. Related Data Home Medications Medication Instructions Recorded Confirmed [CALCIUM] #0 12/22/10 [FISH OIL] #0 12/22/10 [VITAMIN D] #0 12/22/10 diltiazem HCl 120 mg 120 mg PO .PRN cap 11/16/18 capsule,extended release 24 hr omeprazole 20 mg capsule,delayed 20 mg PO .prn cap 11/16/18 release Previous Rx's Medication Instructions Recorded rivaroxaban 20 mg tablet 20 mg PO DAILY #90 tab 11/16/18 varicella-zoster glycoE [id number] 0.5 ml IM ONCE #1 each 11/16/18 adj(PF) 50 mcg/0.5 mL IM susp, kit furosemide 10 mg PO QAM #30 tab 06/07/20 metoprolol tartrate 25 mg PO BID #60 tab 06/07/20 potassium chloride 10 meq PO DAILY #30 cap 06/07/20 Allergies Allergy/AdvReac Type Severity Reaction Status Date / Time nitrofurantoin AdvReac Mild N/V, JOINT Verified 06/26/19 10:43 PAIN Review of Systems Review of Systems Narrative: Remainder of review of systems including constitutional, ENT, cardiovascular, respiratory, GI, , musculoskeletal, skin, neurologic and psychiatric systems reviewed and are unremarkable except as noted in HPI. Patient History Medical History (Updated 06/07/20 @ 17:35 by Dee Dee Saleem MD) Anemia Atrial fibrillation (~2019) Frequent UTI GERD (gastroesophageal reflux disease) (~2017) Headache Hearing loss Hepatitis (~1944) Herpes History of recurrent ear infection History of varicose veins Measles Mitral valve prolapse Mumps Osteoarthritis (~1994) Osteoporosis (~1987) Paroxysmal A-fib Peripheral vascular disease Shoulder pain Vision disorder Surgical History Anesthesia History of bladder surgery History of tonsillectomy and adenoidectomy (~1951) Family History Father History of heart disease Mother History of heart disease Social History Smoking Status: Never smoker Smoking Status: Never smoker alcohol intake frequency: holidays/special occasions only Substance Use Type: marijuana Exam Narrative Exam Narrative: General: For ill-appearing but in no acute distress. HEENT: Moist mucous membranes, normal sclera with reactive pupils, Neck: No JVD, supple Respiratory: Lungs are clear to auscultation, no crackles, no wheezing, no rhonchi. Full and symmetrical air movement Cardiac: Iregular rate and rhythm, S3 and diastolic murmur Abdomen: Soft, nontender good bowel tones, no flank pain Skin: Warm and dry, no rashes Neurologic: Grossly neurologically intact with no obvious asymmetries or abnormalities Extremities: No trauma, well perfused Psych: Cooperative, appropriate insight and affect Initial Vital Signs Initial Vital Signs: Vital Signs Temperature 97.1 F L 06/07/20 13:52 Pulse Rate 90 06/07/20 13:52 Blood Pressure 145/80 H 06/07/20 13:52 Course Orders Ordered: ED Orders 06/07/20 14:05 XR chest 1V Stat EKG-12 Lead Stat Measure peak expiratory flow ONCE RT Consult Eval and Treat Now 06/07/20 14:13 Complete Blood Count AUTO DIFF Stat Comprehensive Metabolic Panel Stat NT-proBNP (BNP-Adult 18+) Stat Prothrombin Time INR Stat Troponin & CK Cardiac Panel Stat Discontinued Medications Furosemide (Furosemide 40 Mg/4 Ml Vial) 20 mg IV NOW ONE Stop: 06/07/20 15:46 Last Admin: 06/07/20 16:01 Dose: 20 mg Documented by: VENECIA Metoprolol Tartrate (Metoprolol Ir 25 Mg Tablet) 50 mg PO NOW ONE Stop: 06/07/20 16:25 Last Admin: 06/07/20 16:29 Dose: 50 mg Documented by: MICAH Vital Signs Vital signs: Vital Signs - 8 hr 06/07/20 13:52 06/07/20 14:06 06/07/20 14:07 Temperature 97.1 F L Pulse Rate 90 77 Respiratory Rate 20 Blood Pressure 145/80 H 150/101 H Pulse Oximetry 67 L 98 06/07/20 14:15 06/07/20 14:30 06/07/20 14:45 Temperature Pulse Rate 111 H 113 H 105 H Respiratory Rate 15 19 17 Blood Pressure 122/59 L 123/74 Pulse Oximetry 99 100 98 06/07/20 14:47 06/07/20 15:00 06/07/20 15:15 Temperature Pulse Rate 107 H 109 H 108 H Respiratory Rate 20 25 H 23 Blood Pressure 112/71 147/76 H 137/65 Pulse Oximetry 99 99 99 06/07/20 15:30 06/07/20 15:45 06/07/20 16:00 Temperature Pulse Rate 106 H 109 H 118 H Respiratory Rate 28 H Blood Pressure 134/76 131/89 Pulse Oximetry 100 99 100 06/07/20 16:15 06/07/20 16:19 06/07/20 16:30 Temperature Pulse Rate 115 H 109 H Respiratory Rate 25 H 24 18 Blood Pressure 144/75 H Pulse Oximetry 93 98 06/07/20 16:31 06/07/20 16:33 06/07/20 16:45 Temperature Pulse Rate 118 H 105 H 107 H Respiratory Rate 28 H 12 26 H Blood Pressure 123/86 123/86 136/70 Pulse Oximetry 97 96 99 06/07/20 17:00 06/07/20 17:03 Temperature Pulse Rate 115 H Respiratory Rate 23 26 H Blood Pressure 139/85 Pulse Oximetry Medical Decision Making Medical Records Medical records reviewed: Yes I reviewed the patient's medical records. Lab Data Lab results reviewed: Yes I reviewed the patient's lab results. Result diagrams: 06/07/20 14:13 06/07/20 14:13 Labs: Lab Results 06/07/20 06/07/20 06/07/20 Range/Units 14:13 14:13 14:13 WBC 6.1 (4.5-11.0) X10^3/uL RBC 4.66 (4.0-5.2) X10^6/uL Hgb 14.2 (12.0-16.0) g/dL Hct 43.7 (36-46) % MCV 93.9 (80-100) fL MCH 30.5 (26-34) PG MCHC 32.5 (30-36) % RDW 13.5 (11.6-14.8) % Plt Count 231 (150-400) X10^3/uL Neut % (Auto) 62.6 (50-75) % Lymph % (Auto) 27.5 (25-40) % Throckmorton % (Auto) 7.8 (3-14) % Eos % (Auto) 1.0 L (2-4) % Baso % (Auto) 1.1 (0-2) % Neut # (Auto) 3800 (8969-8111) /uL Lymph # (Auto) 1700 (6335-3983) /uL Throckmorton # (Auto) 500 (0-900) /uL Eos # (Auto) 100 (0-450) /uL Baso # (Auto) 100 (0-100) /uL PT 13.4 H (10.1-12.7) SECONDS INR 1.2 (0.9-1.3) Sodium 138 (137-145) mmol/L Potassium 4.7 (3.4-5.1) mmol/L Chloride 109 H (98-107) mmol/L Carbon Dioxide 24 (22-32) mmol/L BUN 14 (7-17) mg/dL Creatinine 0.86 (0.52-1.04) mg/dL Estimated GFR > 60.0 (>60) mL/min BUN/Creatinine Ratio 16.3 (6-22) Glucose 105 (80-110) mg/dL Calcium 9.1 (8.4-10.2) mg/dL Total Bilirubin 0.8 (0.2-1.3) mg/dL AST 36 (14-36) IU/L ALT 20 (<35) IU/L Alkaline Phosphatase 66 (38-126) U/L Total Creatine Kinase (30-135) U/L CK-MB (CK-2) CK-MB (CK-2) Rel Index Troponin I (0.01-0.034) ng/mL NT-Pro-B Natriuret Pep 5320 H (<450) pg/mL Total Protein 7.6 (6.3-8.2) g/dL Albumin 4.3 (3.5-5.0) g/dL Globulin 3.3 (1.7-4.1) g/dL Albumin/Globulin Ratio 1.3 (1.0-2.8) 06/07/20 Range/Units 14:13 WBC (4.5-11.0) X10^3/uL RBC (4.0-5.2) X10^6/uL Hgb (12.0-16.0) g/dL Hct (36-46) % MCV (80-100) fL MCH (26-34) PG MCHC (30-36) % RDW (11.6-14.8) % Plt Count (150-400) X10^3/uL Neut % (Auto) (50-75) % Lymph % (Auto) (25-40) % Throckmorton % (Auto) (3-14) % Eos % (Auto) (2-4) % Baso % (Auto) (0-2) % Neut # (Auto) (5770-2404) /uL Lymph # (Auto) (1898-9339) /uL Throckmorton # (Auto) (0-900) /uL Eos # (Auto) (0-450) /uL Baso # (Auto) (0-100) /uL PT (10.1-12.7) SECONDS INR (0.9-1.3) Sodium (137-145) mmol/L Potassium (3.4-5.1) mmol/L Chloride (98-107) mmol/L Carbon Dioxide (22-32) mmol/L BUN (7-17) mg/dL Creatinine (0.52-1.04) mg/dL Estimated GFR (>60) mL/min BUN/Creatinine Ratio (6-22) Glucose (80-110) mg/dL Calcium (8.4-10.2) mg/dL Total Bilirubin (0.2-1.3) mg/dL AST (14-36) IU/L ALT (<35) IU/L Alkaline Phosphatase (38-126) U/L Total Creatine Kinase 64 (30-135) U/L CK-MB (CK-2) TNP CK-MB (CK-2) Rel Index TNP Troponin I < 0.012 (0.01-0.034) ng/mL NT-Pro-B Natriuret Pep (<450) pg/mL Total Protein (6.3-8.2) g/dL Albumin (3.5-5.0) g/dL Globulin (1.7-4.1) g/dL Albumin/Globulin Ratio (1.0-2.8) Imaging Data Echocardiogram 01/12/2020: Radiologist's Impression: nterpretation Summary The mitral valve leaflets appear myxomatous. There is moderate bileaflet prolapse. Visually and by color Doppler only, the mitral regurgitation is not severe; however, the ject is eccentric and wraps in the posterior left atrium with Coanda effect. There is systolic flow reversal in the pulmonary venin flow, indicating severe mitral regurgitation. No significant pulmonary hypertension. The LVEF is >65%. Patient appears to be now in atrial fibrillation which is new compared to the prior study. No other significant change. ECG Data Attestation: I personally reviewed and interpreted this ECG as follows: MDM Narrative Medical decision making narrative: JORDON Gandara 10:00 F/u Wednesday. Will start trend 25 mg of metoprolol b.i.d. along with 20 mg of Lasix and 10 mEq of potassium with instructions and follow-up on Wednesday. I suspect that this is newly developing heart failure in setting of atrial fibrillation moderately rapid in the 120 range for at least a day or 2. Most recent ejection fraction is 65%. Oxygen saturations are if the upper 90s, patient is quite comfortable with no dramatic signs or symptoms of overt heart failure with close follow-up available on Wednesday. She is currently anticoagulated on Pradaxa. Reviewed with her that she does need to return to the emergency room she has any worsening symptoms over the weekend. Discharge Plan Departure Patient Disposition: Home Clinical Impression: Atrial fibrillation with rapid ventricular response CHF (congestive heart failure) Qualifiers: Heart failure type: unspecified Heart failure chronicity: acute Qualified Code(s): I50.9 - Heart failure, unspecified Instructions: DI for Heart Failure, DI for Atrial Fibrillation Activity Restrictions/Additional Instructions: Thank you for coming in today Your paroxysmal atrial fibrillation looks like it has been more in fibrillation than out of fibrillation lately. Your heart rate has been relatively fast and over a period of time your heart is not as efficient and pumping blood. Because of this fluid has backed up into your lungs, this is mild congestive heart failure. For your atrial fibrillation, you are currently already on Pradaxa for stroke prevention. I am going to have you take 25 mg of metoprolol a.m. and p.m. to help control your heart rate. Please keep track of your blood pressure and your heart rate to review with Ms. Zamora when you see her on Wednesday. You do not need to use the diltiazem at all for the time being I am also going to give you a prescription for Lasix/furosemide to take daily to help decrease some of the fluid in your lungs. Every time you take 1 of these pills you also need to take a potassium pill. All prescriptions were electronically transmitted to [facility] for you today You have an appointment scheduled with Maryjo Zamora on Wednesday at 10 in the morning to follow-up on each of these issues If you have worsening shortness of breath, feel that your heart rate is continuing to go faster or develop any chest pain, please feel free to return to the emergency room for further evaluation Prescriptions: New metoprolol tartrate 25 mg tablet 25 mg PO BID Qty: 60 RF: 0 furosemide 20 mg tablet 10 mg PO QAM Qty: 30 RF: 0 potassium chloride 10 mEq capsule, extended release 10 meq PO DAILY Qty: 30 RF: 0 No Action [CALCIUM] Qty: 0 RF: 0 [VITAMIN D] Qty: 0 RF: 0 [FISH OIL] Qty: 0 RF: 0 diltiazem HCl [Cardizem CD] 120 mg capsule,extended release 24hr 120 mg PO .PRN RF: 0 omeprazole 20 mg capsule,delayed release(DR/EC) 20 mg PO .prn RF: 0 Xarelto 20 mg tablet 20 mg PO DAILY Qty: 90 RF: 0 Shingrix (PF) 50 mcg/0.5 mL suspension for reconstitution 0.5 ml IM ONCE Qty: 1 RF: 0 Referrals: Maryjo Zamora PA-C [Primary Care Provider] -
[2020-06-07 15:03] LABS: Creatine Kinase 64 U/L (30-135)
[2020-06-07 15:15] LABS: Troponin I < 0.012 ng/mL (0.01-0.034)
[2020-06-07] MEDS: FUROSEMIDE 40 MG/4 ML VIAL 20 MG IV (16:01)
[2020-06-07] MEDS: METOPROLOL IR 25 MG TABLET 50 MG PO (16:29)
== END 2020-06-07 17:46 | disposition home or self-care (01) ==
PROVIDERS: Emergency Provider Emergency Medicine; PCP Physician Assistant
DX: I48.91 Unspecified atrial fibrillation (principal); I50.9 Heart failure, unspecified; R00.2 Palpitations
CPT/HCPCS: 36415; 71045; 80053; 82550; 83880; 84484; 85025; 85610; 93005; 93010; 96374; 99283; 99284; J1940

== ENCOUNTER → 2020-06-11 14:47 | Outpatient (CLI) | payer OTHER, SELFPAY ==
--- NOTE | 2020-06-11 | DI.ECHO.S_ITS ---
[facility]---------+ [facility] +---------+ : : [address] : [address] [place] : : : : [id number] : : : : Phone: [phone] Echocardiogram Report + + :Name: RANDELL RODRÍGUEZ Study Date: 06/11/2020 Height: 63 in : :[facility] ReadingLocation: Weight: 108 lb : : Gender: Female BSA: 1.5 m2 : :: 1935 Age: 85 yrs BP: 109/66 mmHg: :Reason For Study: ATRIAL FIBRILLATION : :Ordering Physician: OCHOA, : :KACIE Performed By: Jessi Montilla : :Referring: KACIE PACKER : + + Interpretation Summary Afib with controlled rate. Normal LV size and wall thickness. Normal wall motion and LV systolic function. EF is 65-70%, Severe LA enlargement. There is severe mitral valve leaflet thickening and prolapse with moderate associated eccentric posterolaterally directed MR. Compared to prior study 01/12/2020 no significant changes have occurred. Procedure: A two-dimensional transthoracic echocardiogram with color flow and Doppler was performed. The study quality was technically adequate. Comparison is made with the echocardiogram of 01/12/2020. The patient was in atrial fibrillation with heart rates between 70-90 bpm during the exam. Left Ventricle: The left ventricle is normal in size and wall thickness. Proximal septal thickening is noted. The ejection fraction is estimated to be 65-70%. Diastolic function could not be accurately assessed due to atrial fibrillation. Right Ventricle: The right ventricle is grossly normal size. Right ventricular systolic function is at the lower limits of normal. Atria: The left atrium is severely dilated. The right atrium is normal in size. There is no Doppler evidence for an interatrial shunt. Mitral Valve: The mitral valve leaflets appear mildly thickened, but open well. There is moderate mitral valve prolapse. There is severe mitral regurgitation. The mitral regurgitant jet is eccentrically directed. There are multiple regurgitant jets present. PISA could not be reliably performed due to 'eccentric jet'. Aortic Valve: The aortic valve is trileaflet. The aortic valve opens well. There is no aortic valve stenosis. There is mild aortic regurgitation. Tricuspid Valve: There is borderline tricuspid valve prolapse. There is mild tricuspid regurgitation. The right ventricular systolic pressure is estimated to be at least 34 mmHg based on an estimated right atrial pressure of 8 mm Hg. Pulmonic Valve: The pulmonic valve leaflets are thin and pliable; valve motion is normal. There is no pulmonic valvular regurgitation. Great Vessels: The aortic root is normal size. The ascending aorta is mildly enlarged. The IVC is of normal diameter and collapses less than 50% with a sniff. This suggests a right atrial pressure of 8 mm Hg. Pericardium/ Pleura There is no pericardial effusion. There is no pleural effusion. MMode/2D Measurements & Calculations LVIDd: 4.7 cm LVOT diam: 2.0 cm LVIDs: 2.5 cm Ao root diam: 2.9 cm FS: 46.3 % asc Aorta Diam: 3.4 cm EPSS: 0.78 cm Ao Arch Diam (Prox Trans): 2.1 cm IVSd: 1.0 cm LVPWd: 1.00 cm LV rider. diameter/BSA (cm/m^2): 3.1 LV sys. diameter/BSA (cm/m^2): 1.7 LA A2 area: 27.0 cm2 RA long axis: 5.4 cm LA A4 area: 22.2 cm2 RA area: 15.7 cm2 LA length (vol): 5.5 cm RA vol: 39.3 ml LA vol: 92.5 ml RA : 26.4 ml/m2 LA vol index: 62.1 ml/m2 IVC diam: 1.7 cm RVD1 (basal): 2.6 cm TAPSE: 1.6 cm Doppler Measurements & Calculations Ao V2 max: 118.3 cm/sec LVOT Max Christophe: 64.2 cm/sec Ao V2 mean: 82.3 cm/sec LV V1 max P.7 mmHg Ao max P.6 mmHg LV V1 VTI: 11.7 cm Ao mean P.0 mmHg CARLOS EDUARDO(I,D): 2.0 cm2 Ao V2 VTI: 18.6 cm CARLOS EDUARDO(V,D): 1.7 cm2 sev ratio: 0.63 CARLOS EDUARDO indexed to BSA (cm^2/m^2): 1.3 AI P1/2t: 817.6 msec AI dec slope: 150.9 cm/sec2 MV E max christophe: 147.4 cm/sec TR max christophe: 256.0 cm/sec MV A max christophe: 2.9 cm/sec TR max P.2 mmHg MV E/A: 51.6 PA V2 max: 60.5 cm/sec Med Peak E' Christophe: 9.4 cm/sec PA V2 mean: 41.4 cm/sec E/E' med: 15.6 PA mean P.79 mmHg Lat Peak E' Christophe: 7.2 cm/sec PA pr(Accel): 34.5 mmHg E/E' lat: 20.5 E/e' average: 18.0 MV dec time: 0.16 sec SV(LVOT): 37.2 ml Electronically signed by: Odalys Lyles M.D. on Reading Physician:06/11/2020 11:19 PM
== END ==
PROVIDERS: PCP Physician Assistant; Referring Provider Physician Assistant; Visit Provider Physician Assistant
DX: I08.3 Combined rheumatic disorders of mitral, aortic and tricuspid valves (principal); I77.89 Other specified disorders of arteries and arterioles; I48.19 Other persistent atrial fibrillation
CPT/HCPCS: 93306

== ENCOUNTER → 2020-06-19 14:37 | Outpatient (CLI) | payer OTHER, SELFPAY ==
[2020-06-19 15:28] LABS: Add Manual Diff / Slide Review NO; Basophils Absolute Auto 0 /uL (0-100); Basophils Percent Auto 0.4 % (0-2); Eosinophils Absolute Auto 100 /uL (0-450); Eosinophils Percent Auto 1.1 % (2-4); Hematocrit 38.3 % (36-46); Hemoglobin 12.6 g/dL (12.0-16.0); Lymphocytes Absolute Auto 1100 /uL (1100-4500); Lymphocytes Percent Auto 22.6 % (25-40); Mean Corpuscular Hemoglobin 30.8 PG (26-34); Mean Corpuscular Volume 93.3 fL (80-100); Monocytes Absolute Auto 500 /uL (0-900); Monocytes Percent Auto 9.7 % (3-14); Neutrophils Absolute Auto 3200 /uL (1500-7000); Neutrophils Percent Auto 66.2 % (50-75); Platelet Count 215 X10^3/uL (150-400); Red Blood Cell Count 4.11 X10^6/uL (4.0-5.2); Red Cell Distribution Width 13.9 % (11.6-14.8); White Blood Cell Count 4.9 X10^3/uL (4.5-11.0)
[2020-06-19 20:31] LABS: BUN Creatinine Ratio 18.3 (6-22); Blood Urea Nitrogen 17 mg/dL (7-17); Carbon Dioxide 30 mmol/L (22-32); Chloride 107 mmol/L (98-107); Estimated Glomerular Filt Rate 57.6 mL/min (>60); Glucose 100 mg/dL (80-110); HEMOLYSIS < 15 (0-50); Potassium 3.6 mmol/L (3.4-5.1); Sodium 140 mmol/L (137-145)
== END ==
PROVIDERS: PCP Physician Assistant; Referring Provider Internal Medicine Cardiovascular Disease; Visit Provider Internal Medicine Cardiovascular Disease
DX: I48.19 Other persistent atrial fibrillation (principal); Z79.01 Long term (current) use of anticoagulants
CPT/HCPCS: 36415; 80048; 85025

== ENCOUNTER → 2020-06-25 19:59 | Outpatient (ROUT) | payer OTHER, SELFPAY ==
[2020-06-25 20:21] LABS: Blood Urea Nitrogen 15 mg/dL (7-17); Calcium 9.3 mg/dL (8.4-10.2); Carbon Dioxide 34 mmol/L (22-32); Chloride 102 mmol/L (98-107); Glucose 91 mg/dL (80-110); HEMOLYSIS 15 (0-50); Sodium 140 mmol/L (137-145)
[2020-06-25 20:29] LABS: NT-proBNP (BNP-Adult 18+) 2450 pg/mL (<450)
== END ==
PROVIDERS: PCP Physician Assistant; Visit Provider Physician Assistant
DX: R06.02 Shortness of breath (principal)
CPT/HCPCS: 80048; 83880

== ENCOUNTER → 2020-06-26 08:37 | Outpatient (CLI) | payer MEDICARE, SELFPAY ==
[2020-06-26] MEDS: COVID-19 VACC #1, MRNA(MOD) 100 MCG/0.5 ML VIAL IM (08:48)
== END ==
PROVIDERS: PCP Physician Assistant; Visit Provider Internal Medicine
DX: Z23 Encounter for immunization (principal)
CPT/HCPCS: 0011A; 91301

== ENCOUNTER → 2020-07-25 08:54 | Outpatient (CLI) | payer MEDICARE, SELFPAY ==
[2020-07-25] MEDS: COVID-19 VACC #2, MRNA(MOD) 100 MCG/0.5 ML VIAL IM (09:00)
== END ==
PROVIDERS: PCP Physician Assistant; Visit Provider Internal Medicine
DX: Z23 Encounter for immunization (principal)
CPT/HCPCS: 0012A; 91301

== ENCOUNTER → 2020-09-20 14:43 | Outpatient (CLI) | payer OTHER, SELFPAY ==
[2020-09-20 16:49] LABS: BUN Creatinine Ratio 14.9 (6-22); Blood Urea Nitrogen 15 mg/dL (7-17); Calcium 9.1 mg/dL (8.4-10.2); Carbon Dioxide 26 mmol/L (22-32); Chloride 104 mmol/L (98-107); Estimated Glomerular Filt Rate 52.3 mL/min (>60); Glucose 136 mg/dL (80-110); HEMOLYSIS < 15 (0-50); Potassium 3.8 mmol/L (3.4-5.1); Sodium 140 mmol/L (137-145)
== END ==
PROVIDERS: PCP Physician Assistant; Referring Provider Internal Medicine Cardiovascular Disease; Visit Provider Internal Medicine Cardiovascular Disease
DX: I48.19 Other persistent atrial fibrillation (principal)
CPT/HCPCS: 36415; 80048

== ENCOUNTER 2020-09-24 01:32 | Emergency (ER) | payer OTHER, SELFPAY ==
--- NOTE | 2020-09-24 01:34 | ED_ITS ---
HPI - Female Genitourinary General Chief complaint: Urogenital-Female Stated complaint: thinks she has bladder infection Time Seen by Provider: 09/24/20 01:33 Source: patient Mode of arrival: Ambulatory Limitations: no limitations History of Present Illness HPI Narrative: 85-year-old female nonsmoker with history of atrial fibrillation, chronic anticoagulation, mitral valve prolapse and UTIs presents with a chief complaint of concerned about the possibility of a bladder infection. She states she had been in her normal state of health until a few hours ago when she started developing urinary frequency and dysuria. She denies any fever chills nor any hematuria. She denies systemic symptoms such as fever, chills nor nausea or vomiting. She denies any back pain. She states she has a prior history of frequent UTIs but has been quite some time. She is otherwise well and free of complaint. MD Complaint: dysuria and UTI Onset (ago): hour(s) Location: suprapubic Severity: mild Quality: Burning Duration: intermittent Relieving factors: none Exacerbating factors: urination Urinary symptoms: Difficulty Urinating, Dysuria, Frequency and Urgency Patient : No Associated symptoms: denies other symptoms Related Data Home Medications Medication Instructions Recorded Confirmed [CALCIUM] #0 12/22/10 [FISH OIL] #0 12/22/10 [VITAMIN D] #0 12/22/10 diltiazem HCl 120 mg 120 mg PO .PRN cap 11/16/18 capsule,extended release 24 hr omeprazole 20 mg capsule,delayed 20 mg PO .prn cap 11/16/18 release Previous Rx's Medication Instructions Recorded rivaroxaban 20 mg tablet 20 mg PO DAILY #90 tab 11/16/18 varicella-zoster glycoE [id number] 0.5 ml IM ONCE #1 each 11/16/18 adj(PF) 50 mcg/0.5 mL IM susp, kit furosemide 10 mg PO QAM #30 tab 06/07/20 metoprolol tartrate 25 mg PO BID #60 tab 06/07/20 potassium chloride 10 meq PO DAILY #30 cap 06/07/20 cephalexin 500 mg PO BID #10 cap 09/24/20 Allergies Allergy/AdvReac Type Severity Reaction Status Date / Time nitrofurantoin AdvReac Mild N/V, JOINT Verified 11/16/18 10:43 PAIN Review of Systems Constitutional Constitutional: Denies chills, Denies fatigue, Denies fever(s), Denies frequent falls, Denies lethargy and Denies weakness Eyes Eyes: Denies change in vision, Denies eye discharge, Denies irritation and Denies loss of vision ENT Ears, Nose, Mouth, and Throat: Denies change in voice, Denies dizziness, Denies neck pain, Denies sore throat and Denies throat swelling Cardiovascular Cardiovascular: Denies chest pain, Denies irregular heart rhythm, Denies lightheadedness, Denies palpitations, Denies dyspnea, Denies dyspnea on exertion and Denies orthopnea Respiratory Respiratory: Denies cough, Denies dyspnea, Denies dyspnea on exertion and Denies wheezing Gastrointestinal Gastrointestinal: Denies abdominal pain, Denies change in bowel habits, Denies diarrhea, Denies nausea and Denies vomiting Genitourinary Genitourinary: Reports dysuria and Reports dysuria Genitourinary: Reports dysuria and Reports dysuria Musculoskeletal Musculoskeletal: Denies neck pain and Denies numbness Integumentary/Breasts Skin/Breast: Denies pruritus, Denies erythema, Denies rash and Denies wounds Neurologic Neurologic: Denies behavioral changes, Denies confusion, Denies dizziness, Denies frequent falls, Denies loss of vision, Denies numbness and Denies weakness Psychiatric Psychiatric: Denies anxiety, Denies behavioral changes, Denies confusion, Denies depression, Denies homicidal ideation and Denies suicidal ideation Endocrine Endocrine: Denies fatigue, Denies flushing and Denies palpitations Hematologic/Lymphatic Hematologic/Lymphatic: Denies easy bruising Allergic/Immunologic Allergic/Immunologic: Denies urticaria, Denies throat swelling and Denies wheezing Patient History Medical History Anemia Atrial fibrillation (~2019) Frequent UTI GERD (gastroesophageal reflux disease) (~2017) Headache Hearing loss Hepatitis (~194) Herpes History of recurrent ear infection History of varicose veins Measles Mitral valve prolapse Mumps Osteoarthritis (~1994) Osteoporosis (~1987) Paroxysmal A-fib Peripheral vascular disease Shoulder pain Vision disorder Surgical History Anesthesia History of bladder surgery History of tonsillectomy and adenoidectomy (~1951) Family History Father History of heart disease Mother History of heart disease alcohol intake frequency: holidays/special occasions only Substance Use Type: marijuana Exam Narrative Exam Narrative: GEN: AOx3 and in no obvious or significant distress EYES: Pupils are equal, round, and reactive to light and accommodation. Extraoccular muscles are intact bilaterally. There is no subconjunctival hemorrhage or exudate. CHEST: Lungs are clear to auscultation bilaterally and free of wheezes, rales, or rhonchi. Heart rate is regular rhythm, there are no murmurs, clicks, rubs, or gallops. There is no chest wall tenderness. ABD: Abdomen is soft and nontender. There is no guarding or rebound. Bowel sounds are normal in all 4 quadrants. There is no mass or organomegaly. BACK: No CVA tenderness EXT: Full painless ROM of all extremities with no loss of sensation or strength. SKIN: Warm, pink, and dry. No erythema or rash Initial Vital Signs Initial Vital Signs: Vital Signs Temperature 97.4 F L 09/24/20 01:35 Pulse Rate 63 09/24/20 01:35 Respiratory Rate 18 09/24/20 01:35 Blood Pressure 133/92 H 09/24/20 01:35 Pulse Oximetry 95 09/24/20 01:35 Course Orders Ordered: ED Orders 09/24/20 01:46 Urine Microscopic Stat Discontinued Medications Cefazolin Sodium (Cephalexin 250 Mg Prepack) 1 bottle MISC SEEINSTR ONE Stop: 09/24/20 01:48 Last Admin: 09/24/20 01:50 Dose: 250 mg Documented by: Vital Signs Vital signs: Vital Signs - 8 hr 09/24/20 01:35 Temperature 97.4 F L Pulse Rate 63 Respiratory Rate 18 Blood Pressure 133/92 H Pulse Oximetry 95 MDM - Female Genitourinary Medical Records Medical records narrative: Patient understands and agrees with diagnosis and plan. Return precautions given and questions answered to their apparent satisfaction Lab Data Labs: Urine Dip Bedside Urine Glucose Negative Bedside Urine Bilirubin - Negative Bedside Urine Ketone - Negative Urine Specific [place] 1.020 Bedside Urine Occult Blood +++ Bedside Urine pH 6.0 Bedside Urine Protein + 30 Bedside Urine Urobilinogen - Negative Bedside Urine Nitrite - Negative Bedside Urine Leukocytes ++ 125 Esterase Discharge Plan Departure Patient Disposition: Home Clinical Impression: Acute UTI Instructions: DI for Urinary Tract Infection (UTI) Activity Restrictions/Additional Instructions: *You have been diagnosed with [acute urinary tract infection] *What to do: *Please take new medications as directed: You've been given your first dose of an antibiotic tonight and the remainder of your prescription was sent to [facility] at your request. *Follow up with your primary care provider in 2-3 days, call for an appointment. Let them know you were seen in the Emergency Department and that we ask that you be seen in follow up *Return to ER if you should have any new, worsening or concerning symptoms, such as [fever greater than 101 F, shaking chills, worsening pain, persistent vomiting or other bothersome symptoms] Prescriptions: New cephalexin 500 mg capsule 500 mg PO BID Qty: 10 RF: 0 No Action [CALCIUM] Qty: 0 RF: 0 [VITAMIN D] Qty: 0 RF: 0 [FISH OIL] Qty: 0 RF: 0 diltiazem HCl [Cardizem CD] 120 mg capsule,extended release 24hr 120 mg PO .PRN RF: 0 omeprazole 20 mg capsule,delayed release(DR/EC) 20 mg PO .prn RF: 0 Xarelto 20 mg tablet 20 mg PO DAILY Qty: 90 RF: 0 Shingrix (PF) 50 mcg/0.5 mL suspension for reconstitution 0.5 ml IM ONCE Qty: 1 RF: 0 metoprolol tartrate 25 mg tablet 25 mg PO BID Qty: 60 RF: 0 furosemide 20 mg tablet 10 mg PO QAM Qty: 30 RF: 0 potassium chloride 10 mEq capsule, extended release 10 meq PO DAILY Qty: 30 RF: 0 Referrals: Maryjo Zamora PA-C [Primary Care Provider] -
[2020-09-24 01:35] VITALS: BP 133/92; PULSE 63; RESP 18; TEMP 36.3; O2SAT 95; BMI 20.1
[2020-09-24] MEDS: cephALEXin 250 MG PREPACK 1 BOTTLE MISC (01:50)
[2020-09-24 02:12] LABS: RBC Urine 30-100/HPF (0-5/HPF); Squamous Epithelial Cell Urine 1-5 /HPF (0-5/HPF); WBC Urine 30-100/HPF (0-5/HPF)
[2020-09-24 02:13] LABS: Bacteria Urine Moderate (10-30); Culture Indicated Urine Specimen Cultured
== END 2020-09-24 01:55 | disposition home or self-care (01) ==
PROVIDERS: Emergency Provider Emergency Medicine; PCP Physician Assistant
DX: N39.0 Urinary tract infection, site not specified (principal)
CPT/HCPCS: 81003; 81015; 87086; 99281; 99283

== ENCOUNTER 2020-11-08 17:57 | Emergency (ER) | payer OTHER, SELFPAY ==
[2020-11-08] VITALS (18 sets, daily range): BP systolic 109–137; BP diastolic 62–87; PULSE 80–111; RESP 19–30; O2SAT 96–99; BMI 20.1
--- NOTE | 2020-11-08 18:04 | DI.RAD.S_ITS ---
PROCEDURE: XR CHEST 1V INDICATIONS: chest pain TECHNIQUE: One view of the chest was acquired. COMPARISON: [facility], CR, XR CHEST 1V, 06/07/2020, 14:06. FINDINGS: Surgical changes and devices: None. Lungs and pleura: Lungs are clear. No pleural effusions or pneumothorax. Mediastinum: Mediastinal contours appear stable. Heart size is stable. Bones and chest wall: No suspicious bony lesions. Overlying soft tissues appear unremarkable. IMPRESSION: Stable radiographic evaluation of the chest without acute cardiopulmonary abnormalities or focal airspace disease. Dictated by: Navneet Huber M.D. on 11/08/2020 at 18:40 Approved by: Navneet Huber M.D. on 11/08/2020 at 18:44
[2020-11-08 18:20] LABS: Add Manual Diff / Slide Review NO; Basophils Absolute Auto 0 /uL (0-100); Basophils Percent Auto 0.8 % (0-2); Eosinophils Absolute Auto 100 /uL (0-450); Hematocrit 44.7 % (36-46); Hemoglobin 14.5 g/dL (12.0-16.0); Lymphocytes Absolute Auto 1800 /uL (1100-4500); Lymphocytes Percent Auto 28.7 % (25-40); Mean Corpuscular HGB Conc 32.5 % (30-36); Mean Corpuscular Hemoglobin 30.2 PG (26-34); Monocytes Absolute Auto 700 /uL (0-900); Monocytes Percent Auto 10.3 % (3-14); Neutrophils Absolute Auto 3700 /uL (1500-7000); Neutrophils Percent Auto 58.2 % (50-75); Platelet Count 214 X10^3/uL (150-400); Red Blood Cell Count 4.81 X10^6/uL (4.0-5.2); Red Cell Distribution Width 15.1 % (11.6-14.8); White Blood Cell Count 6.4 X10^3/uL (4.5-11.0)
[2020-11-08 18:34] LABS: Alanine Aminotransferase 18 IU/L (<35); Albumin 3.9 g/dL (3.5-5.0); Albumin Globulin Ratio 1.2 (1.0-2.8); Alkaline Phosphatase 74 U/L (38-126); Aspartate Aminotransferase 32 IU/L (14-36); BUN Creatinine Ratio 19.6 (6-22); Bilirubin Total 0.8 mg/dL (0.2-1.3); Blood Urea Nitrogen 18 mg/dL (7-17); Calcium 9.5 mg/dL (8.4-10.2); Carbon Dioxide 29 mmol/L (22-32); Chloride 101 mmol/L (98-107); Creatine Kinase 43 U/L (30-135); Estimated Glomerular Filt Rate 58.3 mL/min (>60); Globulin 3.3 g/dL (1.7-4.1); Glucose 101 mg/dL (80-110); HEMOLYSIS 44 (0-50); Lipase 352 U/L (23-300); Potassium 4.3 mmol/L (3.4-5.1); Sodium 136 mmol/L (137-145); Total Protein 7.2 g/dL (6.3-8.2)
--- NOTE | 2020-11-08 18:42 | ED.CHESTPAIN ---
HPI - Chest Pain General Chief Complaint: Chest Pain Stated Complaint: Left Sided Chest Pain Time Seen by Provider: 11/08/20 18:02 Source: patient and family Mode of arrival: Family Vehicle Limitations: no limitations History of Present Illness HPI narrative: 85-year-old female nonsmoker with history of UTI and CHF presents with her in the chief complaint of a sudden onset left-sided chest pain that started about 1 hour prior to arrival. She states her pain is made worse by palpation and motion and improves with rest. She states it is sharp and stabbing and feels like someone with long fingernails was poking her left chest. She denies any radiation of her pain is states that a lasted only 15 minutes or so and had resolved prior to her arrival. She denies associated symptoms such as dizziness, weakness, lightheadedness, shortness of breath, cough, trauma, nausea, vomiting or diaphoresis. MD complaint: chest pain Onset (ago): hour(s) Duration: now resolved Onset: during exertion Pain location: left chest Severity: mild Quality: sharp Pain radiation: none Treatments prior to arrival chest pain: none Related Data On Oral Contraceptives: No Home Medications Medication Instructions Recorded Confirmed [CALCIUM] #0 12/22/10 [FISH OIL] #0 12/22/10 [VITAMIN D] #0 12/22/10 diltiazem HCl 120 mg 120 mg PO .PRN cap 11/16/18 capsule,extended release 24 hr omeprazole 20 mg capsule,delayed 20 mg PO .prn cap 11/16/18 release Previous Rx's Medication Instructions Recorded rivaroxaban 20 mg tablet 20 mg PO DAILY #90 tab 11/16/18 varicella-zoster glycoE [id number] 0.5 ml IM ONCE #1 each 11/16/18 adj(PF) 50 mcg/0.5 mL IM susp, kit furosemide 10 mg PO QAM #30 tab 06/07/20 metoprolol tartrate 25 mg PO BID #60 tab 06/07/20 potassium chloride 10 meq PO DAILY #30 cap 06/07/20 cephalexin 500 mg PO BID #10 cap 09/24/20 Allergies Allergy/AdvReac Type Severity Reaction Status Date / Time nitrofurantoin AdvReac Mild N/V, JOINT Verified 11/08/20 18:11 PAIN Review of Systems Constitutional Constitutional: Denies chills, Denies fatigue, Denies fever(s), Denies frequent falls, Denies lethargy and Denies weakness Eyes Eyes: Denies change in vision, Denies eye discharge, Denies irritation and Denies loss of vision ENT Ears, Nose, Mouth, and Throat: Denies change in voice, Denies dizziness, Denies neck pain, Denies sore throat and Denies throat swelling Cardiovascular Cardiovascular: Denies chest pain, Reports chest pain at rest, Denies irregular heart rhythm, Denies lightheadedness, Denies palpitations, Denies dyspnea, Denies dyspnea on exertion and Denies orthopnea Respiratory Respiratory: Denies cough, Denies dyspnea, Denies dyspnea on exertion and Denies wheezing Gastrointestinal Gastrointestinal: Denies abdominal pain, Denies change in bowel habits, Denies diarrhea, Denies nausea and Denies vomiting Musculoskeletal Musculoskeletal: Denies neck pain and Denies numbness Integumentary/Breasts Skin/Breast: Denies pruritus, Denies erythema, Denies rash and Denies wounds Neurologic Neurologic: Denies behavioral changes, Denies confusion, Denies dizziness, Denies frequent falls, Denies loss of vision, Denies numbness and Denies weakness Psychiatric Psychiatric: Denies anxiety, Denies behavioral changes, Denies confusion, Denies depression, Denies homicidal ideation and Denies suicidal ideation Endocrine Endocrine: Denies fatigue, Denies flushing and Denies palpitations Hematologic/Lymphatic Hematologic/Lymphatic: Denies easy bruising Allergic/Immunologic Allergic/Immunologic: Denies urticaria, Denies throat swelling and Denies wheezing Patient History Medical History Anemia Atrial fibrillation (~2018) Frequent UTI GERD (gastroesophageal reflux disease) (~2017) Headache Hearing loss Hepatitis (~1944) Herpes History of recurrent ear infection History of varicose veins Measles Mitral valve prolapse Mumps Osteoarthritis (~1994) Osteoporosis (~1987) Paroxysmal A-fib Peripheral vascular disease Shoulder pain Vision disorder Surgical History Anesthesia History of bladder surgery History of tonsillectomy and adenoidectomy (~1951) Family History Father History of heart disease Mother History of heart disease Social History Smoking Status: Never smoker Smoking Status: Never smoker alcohol intake frequency: holidays/special occasions only Substance Use Type: marijuana Exam Narrative Exam Narrative: GENERAL: [85] year old patient appears stated age. Well-developed patient, in mild distress. HEAD: Atraumatic. Normocephalic. EYES: Pupils equal round and reactive. Extraocular motions intact. No scleral icterus. No injection or drainage. ENT: Nose without bleeding, purulent drainage. Throat without erythema, tonsillar hypertrophy or exudate. Airway patent. NECK: Trachea midline. Non tender CARDIOVASCULAR: Regular rate and rhythm without murmurs, gallops, or rubs. RESPIRATORY: Clear to auscultation. Breath sounds equal bilaterally. No wheezes, rales, or rhonchi. GASTROINTESTINAL: Abdomen soft, non-tender, nondistended. EXTREMITIES: No edema or joint tenderness. BACK: Nontender without deformity or crepitance. No flank tenderness. NEURO: AOx3. SKIN: No rash or erythema of visible areas Initial Vital Signs Initial Vital Signs: Vital Signs Pulse Rate 84 11/08/20 18:06 Respiratory Rate 22 11/08/20 18:06 Pulse Oximetry 99 11/08/20 18:06 Course Orders Ordered: ED Orders 11/08/20 18:04 XR chest 1V Stat EKG-12 Lead Stat 11/08/20 18:10 Complete Blood Count AUTO DIFF Stat Comprehensive Metabolic Panel Stat Lipase Stat NT-proBNP (BNP-Adult 18+) Stat Troponin & CK Cardiac Panel Stat 11/08/20 20:14 Troponin I Stat 11/08/20 22:06 Urine Culture Stat Urine Microscopic Stat 11/08/20 22:25 Troponin I Stat Discontinued Medications Sodium Chloride (Normal Saline 0.9%) 1,000 mls @ 150 mls/hr IV CONT COLE Last Admin: 11/08/20 19:03 Dose: Not Given Documented by: BRIGIDA Vital Signs Vital signs: Vital Signs - 8 hr 11/08/20 18:06 11/08/20 18:08 11/08/20 18:30 Pulse Rate 84 111 H 85 Respiratory Rate 22 20 19 Blood Pressure 137/72 Pulse Oximetry 99 99 98 11/08/20 18:44 11/08/20 19:07 11/08/20 19:08 Pulse Rate 82 81 88 Respiratory Rate 20 Blood Pressure 123/85 130/69 Pulse Oximetry 98 96 11/08/20 19:30 11/08/20 20:00 11/08/20 20:30 Pulse Rate 83 93 H 86 Respiratory Rate 25 H 28 H 22 Blood Pressure 122/87 Pulse Oximetry 98 99 99 11/08/20 20:44 11/08/20 21:00 11/08/20 21:30 Pulse Rate 88 83 92 H Respiratory Rate 30 H 22 Blood Pressure 112/82 117/67 Pulse Oximetry 98 97 99 11/08/20 21:31 11/08/20 22:00 11/08/20 22:30 Pulse Rate 92 H 95 H 94 H Respiratory Rate 25 H 23 Blood Pressure 130/86 Pulse Oximetry 99 11/08/20 22:31 11/08/20 23:00 11/08/20 23:01 Pulse Rate 95 H 97 H 80 Respiratory Rate 26 H 20 Blood Pressure 109/62 127/71 Pulse Oximetry 96 MDM - Chest Pain Lab Data Result diagrams: 11/08/20 18:10 11/08/20 18:10 Labs: Lab Results 11/08/20 11/08/20 11/08/20 Range/Units 18:10 18:10 20:14 WBC 6.4 (4.5-11.0) X10^3/uL RBC 4.81 (4.0-5.2) X10^6/uL Hgb 14.5 (12.0-16.0) g/dL Hct 44.7 (36-46) % MCV 93.0 (80-100) fL MCH 30.2 (26-34) PG MCHC 32.5 (30-36) % RDW 15.1 H (11.6-14.8) % Plt Count 214 (150-400) X10^3/uL Neut % (Auto) 58.2 (50-75) % Lymph % (Auto) 28.7 (25-40) % [place] % (Auto) 10.3 (3-14) % Eos % (Auto) 2.0 (2-4) % Baso % (Auto) 0.8 (0-2) % Neut # (Auto) 3700 (1349-7270) /uL Lymph # (Auto) 1800 (3305-1890) /uL [place] # (Auto) 700 (0-900) /uL Eos # (Auto) 100 (0-450) /uL Baso # (Auto) 0 (0-100) /uL Sodium 136 L (137-145) mmol/L Potassium 4.3 (3.4-5.1) mmol/L Chloride 101 (98-107) mmol/L Carbon Dioxide 29 (22-32) mmol/L BUN 18 H (7-17) mg/dL Creatinine 0.92 (0.52-1.04) mg/dL Estimated GFR 58.3 L (>60) mL/min BUN/Creatinine Ratio 19.6 (6-22) Glucose 101 (80-110) mg/dL Calcium 9.5 (8.4-10.2) mg/dL Total Bilirubin 0.8 (0.2-1.3) mg/dL AST 32 (14-36) IU/L ALT 18 (<35) IU/L Alkaline Phosphatase 74 (38-126) U/L Total Creatine Kinase 43 (30-135) U/L CK-MB (CK-2) TNP CK-MB (CK-2) Rel Index TNP Troponin I < 0.012 0.017 (0.01-0.034) ng/mL NT-Pro-B Natriuret Pep 2380 H (<450) pg/mL Total Protein 7.2 (6.3-8.2) g/dL Albumin 3.9 (3.5-5.0) g/dL Globulin 3.3 (1.7-4.1) g/dL Albumin/Globulin Ratio 1.2 (1.0-2.8) Lipase 352 H (23-300) U/L Urine RBC (0-5/HPF) Urine WBC (0-5/HPF) Urine Bacteria (None) Ur Culture Indicated? 11/08/20 11/08/20 Range/Units 22:06 22:25 WBC (4.5-11.0) X10^3/uL RBC (4.0-5.2) X10^6/uL Hgb (12.0-16.0) g/dL Hct (36-46) % MCV (80-100) fL MCH (26-34) PG MCHC (30-36) % RDW (11.6-14.8) % Plt Count (150-400) X10^3/uL Neut % (Auto) (50-75) % Lymph % (Auto) (25-40) % [place] % (Auto) (3-14) % Eos % (Auto) (2-4) % Baso % (Auto) (0-2) % Neut # (Auto) (1848-7668) /uL Lymph # (Auto) (5654-5422) /uL [place] # (Auto) (0-900) /uL Eos # (Auto) (0-450) /uL Baso # (Auto) (0-100) /uL Sodium (137-145) mmol/L Potassium (3.4-5.1) mmol/L Chloride (98-107) mmol/L Carbon Dioxide (22-32) mmol/L BUN (7-17) mg/dL Creatinine (0.52-1.04) mg/dL Estimated GFR (>60) mL/min BUN/Creatinine Ratio (6-22) Glucose (80-110) mg/dL Calcium (8.4-10.2) mg/dL Total Bilirubin (0.2-1.3) mg/dL AST (14-36) IU/L ALT (<35) IU/L Alkaline Phosphatase (38-126) U/L Total Creatine Kinase (30-135) U/L CK-MB (CK-2) CK-MB (CK-2) Rel Index Troponin I < 0.012 (0.01-0.034) ng/mL NT-Pro-B Natriuret Pep (<450) pg/mL Total Protein (6.3-8.2) g/dL Albumin (3.5-5.0) g/dL Globulin (1.7-4.1) g/dL Albumin/Globulin Ratio (1.0-2.8) Lipase (23-300) U/L Urine RBC 0-1/hpf D (0-5/HPF) Urine WBC 0-1/hpf (0-5/HPF) Urine Bacteria None seen (None) Ur Culture Indicated? Specimen cultured Urine Dip Bedside Urine Glucose Negative Bedside Urine Bilirubin - Negative Bedside Urine Ketone - Negative Urine Specific [place] 1.015 Bedside Urine Occult Blood +/- Bedside Urine pH 6.0 Bedside Urine Protein - Negative Bedside Urine Urobilinogen - Negative Bedside Urine Nitrite - Negative Bedside Urine Leukocytes - Negative Esterase Imaging Data Chest x-ray: Radiologist's Impression: [address] [id number] ReportSigned Patient: Callie Montiel EMR#: [id number]: [id number]:[id number]/Sex: 85 / FDate of Service: 11/08/20Loc: EDAccession Number: [id number] Procedure: XR chest 1V Ordering Provider: Bhargav Ayala D.O. PROCEDURE: XR CHEST 1V INDICATIONS: chest pain TECHNIQUE: One view of the chest was acquired. COMPARISON: [facility], , XR CHEST 1V, 06/07/2020, 14:06. FINDINGS: Surgical changes and devices: None. Lungs and pleura: Lungs are clear. No pleural effusions or pneumothorax. Mediastinum: Mediastinal contours appear stable. Heart size is stable. Bones and chest wall: No suspicious bony lesions. Overlying soft tissues appear unremarkable. IMPRESSION: Stable radiographic evaluation of the chest without acute cardiopulmonary abnormalities or focal airspace disease. Dictated by: Navneet Huber M.D. on 11/08/2020 at 18:40 Approved by: Navneet Huber M.D. on 11/08/2020 at 18:44 [facility] Narrative Medical decision making narrative: Multiple causes of chest pain considered including IN, PE, pneumothorax, pneumonia, aortic dissection, and pleurisy. Patient reports no radiation, no diaphoresis, no provocation with exertion, and no vomiting Patient's symptoms improved over duration of stay with above-stated therapies. Findings and discharge diagnosis discussed with patient/family followed by verbalization of understanding Return precautions discussed with patient/family whom verbalize understanding. Discharge Plan Departure Patient Disposition: Home Clinical Impression: Atypical chest pain Instructions: DI for Atypical Chest Pain Activity Restrictions/Additional Instructions: *You have been diagnosed with [Atypical chest pa ] *What to do: *Please continue to take your regular medications as directed. [ ] New medication prescriptions sent to your pharmacy: [ ] [ ] New medication written as a paper prescription [x] No new medications *Please follow up with your primary care provider in 2-3 days, call for an appointment. Let them know you were seen in the Emergency Department and that we ask that you be seen in follow up. We will electronically transmit a record of today's note if your PCP is in our system *If you do not have a primary care provider please contact the [facility] Resource line at [phone]. They will ask some questions about your medical history and help get you set up with a doctor in the community. *Return to Emergency Department if you should have any new, worsening or concerning symptoms, such as [fever greater than 101 F, shaking chills, worsening pain, persistent vomiting or other bothersome symptoms] Prescriptions: No Action [CALCIUM] Qty: 0 RF: 0 [VITAMIN D] Qty: 0 RF: 0 [FISH OIL] Qty: 0 RF: 0 diltiazem HCl [Cardizem CD] 120 mg capsule,extended release 24hr 120 mg PO .PRN RF: 0 omeprazole 20 mg capsule,delayed release(DR/EC) 20 mg PO .prn RF: 0 Xarelto 20 mg tablet 20 mg PO DAILY Qty: 90 RF: 0 Shingrix (PF) 50 mcg/0.5 mL suspension for reconstitution 0.5 ml IM ONCE Qty: 1 RF: 0 metoprolol tartrate 25 mg tablet 25 mg PO BID Qty: 60 RF: 0 furosemide 20 mg tablet 10 mg PO QAM Qty: 30 RF: 0 potassium chloride 10 mEq capsule, extended release 10 meq PO DAILY Qty: 30 RF: 0 cephalexin 500 mg capsule 500 mg PO BID Qty: 10 RF: 0 Referrals: Maryjo Zamora PA-C [Primary Care Provider] -
[2020-11-08 18:46] LABS: NT-proBNP (BNP-Adult 18+) 2380 pg/mL (<450); Troponin I < 0.012 ng/mL (0.01-0.034)
[2020-11-08 21:09] LABS: Troponin I 0.017 ng/mL (0.01-0.034)
[2020-11-08 22:15] LABS: Bacteria Urine None Seen
[2020-11-08 22:30] LABS: Culture Indicated Urine Specimen Cultured; RBC Urine 0-1/HPF (0-5/HPF); WBC Urine 0-1/HPF (0-5/HPF)
[2020-11-08 22:50] LABS: Troponin I < 0.012 ng/mL (0.01-0.034)
== END 2020-11-08 23:15 | disposition home or self-care (01) ==
PROVIDERS: Emergency Provider Emergency Medicine; PCP Physician Assistant
DX: R07.89 Other chest pain (principal)
CPT/HCPCS: 36415; 71045; 80053; 81003; 81015; 82550; 83690; 83880; 84484; 85025; 87086; 93005; 93010; 99284

== ENCOUNTER 2020-11-26 14:10 | Emergency (ER) | payer OTHER, SELFPAY ==
[2020-11-26 14:33] VITALS: BP 140/80; PULSE 87; RESP 20; TEMP 36.3; O2SAT 97
[2020-11-26 21:40] VITALS: BP 113/89; PULSE 64; O2SAT 92
--- NOTE | 2020-11-26 22:04 | ED_ITS ---
HPI - Back Pain/Injury General Chief Complaint: Back Pain/Injury Stated Complaint: Shoulder/neck pain. Sent by [facility] Time Seen by Provider: 11/26/20 21:48 Source: patient and family Mode of arrival: Family Vehicle Limitations: no limitations History of Present Illness HPI Narrative: Patient is an 85-year-old female here with her for evaluation of bilateral upper back and neck discomfort with right being greater discomfort than the left. Is occurred at night mostly when she is lying flat. Her tries to help her sit up in order to go use the restroom and she was crying out in pain. There was no specific trauma. At the time of my exam patient states she was not complaining of any discomfort. She states that the pain does happened when she looks up. She has some ?pulling? in her upper back when she looks down. She can look from side to side with minimal discomfort. Has not tried anything for symptoms prior to arrival. Related Data Home Medications Medication Instructions Recorded Confirmed [CALCIUM] #0 12/22/10 [FISH OIL] #0 12/22/10 [VITAMIN D] #0 12/22/10 diltiazem HCl 120 mg 120 mg PO .PRN cap 11/16/18 capsule,extended release 24 hr (Cardizem CD) omeprazole 20 mg capsule,delayed 20 mg PO .prn cap 11/16/18 release Previous Rx's Medication Instructions Recorded rivaroxaban 20 mg tablet (Xarelto) 20 mg PO DAILY #90 tab 11/16/18 varicella-zoster glycoE [id number] 0.5 ml IM ONCE #1 each 11/16/18 adj(PF) 50 mcg/0.5 mL IM susp, kit (Shingrix (PF)) furosemide 20 mg tablet 10 mg PO QAM #30 tab 06/07/20 metoprolol tartrate 25 mg tablet 25 mg PO BID #60 tab 06/07/20 potassium chloride 10 mEq 10 meq PO DAILY #30 cap 06/07/20 capsule,extended release cephalexin 500 mg capsule 500 mg PO BID #10 cap 09/24/20 cyclobenzaprine 10 mg tablet 10 mg PO TID PRN #12 tab 11/26/20 Allergies Allergy/AdvReac Type Severity Reaction Status Date / Time nitrofurantoin AdvReac Mild N/V, JOINT Verified 11/08/20 18:11 PAIN Review of Systems Constitutional Constitutional: Denies fever(s) and Denies headache(s) Eyes Eyes: Reports system reviewed and no additional complaints, except as documented ENT Ears, Nose, Mouth, and Throat: Denies headache(s) and Reports neck pain Cardiovascular Cardiovascular: Reports system reviewed and no additional complaints, except as documented Respiratory Respiratory: Reports system reviewed and no additional complaints, except as documented Gastrointestinal Gastrointestinal: Reports system reviewed and no additional complaints, except as documented Musculoskeletal Musculoskeletal: Reports back pain (Upper back) and Reports neck pain Integumentary/Breasts Skin/Breast: Denies rash Neurologic Neurologic: Denies headache(s) Comments: No tingling down her arms Hematologic/Lymphatic On Anticoagulants: Yes Allergic/Immunologic Allergic/Immunologic: Reports system reviewed and no additional complaints, except as documented Patient History Medical History Anemia Atrial fibrillation (~2018) Frequent UTI GERD (gastroesophageal reflux disease) (~2016) Headache Hearing loss Hepatitis (~194) Herpes History of recurrent ear infection History of varicose veins Measles Mitral valve prolapse Mumps Osteoarthritis (~1994) Osteoporosis (~1987) Paroxysmal A-fib Peripheral vascular disease Shoulder pain Vision disorder Surgical History Anesthesia History of bladder surgery History of tonsillectomy and adenoidectomy (~1951) Family History Father History of heart disease Mother History of heart disease Social History Smoking Status: Never smoker Smoking Status: Never smoker alcohol intake frequency: holidays/special occasions only Substance Use Type: marijuana Exam Initial Vital Signs Initial Vital Signs: Vital Signs Temperature 97.4 F L 11/26/20 14:33 Pulse Rate 87 11/26/20 14:33 Respiratory Rate 20 11/26/20 14:33 Blood Pressure 140/80 11/26/20 14:33 Pulse Oximetry 97 11/26/20 14:33 HENMT Head: normal to inspection and normocephalic Ears: hearing grossly normal bilaterally Chest Chest: normal inspection of the chest and No tenderness Resp Effort & Inspection: normal respiratory effort Auscultation: clear to auscultation bilaterally Cardio Rate: regular rate Back/Spine/Pelvis Cervical Spine: cervical muscular tenderness (Bilateral over trapezius with fullness felt over the right side) and No cervical spinal tenderness Skin General: no rashes or lesions noted Neuro General: patient alert, patient awake and patient oriented x3 Extrem General: normal to inspection and capillary refill normal Psych Appearance: grossly normal Course Orders Ordered: Discontinued Medications Cyclobenzaprine HCl (Cyclobenzaprine 10 Mg Prepack) 1 bottle MIS SEEINSTR ONE Stop: 11/26/20 22:05 Last Admin: 11/26/20 22:26 Dose: 1 bottle Documented by: REEMA Vital Signs Vital signs: Vital Signs - 8 hr 11/26/20 21:40 Pulse Rate 64 Blood Pressure 113/89 Pulse Oximetry 92 MDM - Back Pain/Injury MDM Narrative Medical decision making narrative: Patient does have fullness over the right trapezius compared to the left. She has no midline tenderness. No falls. I have a very high suspicion that her symptoms are musculoskeletal in origin. I feel we can hold on radiologic studies. Will send home with muscle relaxers. We did have a long discussion stating that these medicines can cause her to be drowsy and that she needed to avoid falling. She expressed understanding of this. She was given strict return precautions. She expressed understanding agreement. Discharge Plan Departure Patient Disposition: Home Clinical Impression: Spasm of cervical paraspinous muscle Instructions: DI for Muscle Spasm Activity Restrictions/Additional Instructions: Which he described today is very consistent with a muscle spasm. You were given a prescription for medication that should help with this. Remember a can make you drowsy so be careful with taking it. A prescription was also sent to [facility]. This is an as-needed medicine. Contact your primary provider for a follow-up. Return to the emergency department for any new or worsening symptoms Prescriptions: New cyclobenzaprine 10 mg tablet 10 mg PO TID PRN (Reason: muscle spasm) Qty: 12 RF: 0 No Action [CALCIUM] Qty: 0 RF: 0 [VITAMIN D] Qty: 0 RF: 0 [FISH OIL] Qty: 0 RF: 0 diltiazem HCl [Cardizem CD] 120 mg capsule,extended release 24hr 120 mg PO .PRN RF: 0 omeprazole 20 mg capsule,delayed release(DR/EC) 20 mg PO .prn RF: 0 Xarelto 20 mg tablet 20 mg PO DAILY Qty: 90 RF: 0 Shingrix (PF) 50 mcg/0.5 mL suspension for reconstitution 0.5 ml IM ONCE Qty: 1 RF: 0 metoprolol tartrate 25 mg tablet 25 mg PO BID Qty: 60 RF: 0 furosemide 20 mg tablet 10 mg PO QAM Qty: 30 RF: 0 potassium chloride 10 mEq capsule, extended release 10 meq PO DAILY Qty: 30 RF: 0 cephalexin 500 mg capsule 500 mg PO BID Qty: 10 RF: 0 Referrals: Maryjo Zamora PA-C [Primary Care Provider] -
[2020-11-26] MEDS: CYCLOBENZAPRINE 10 MG PREPACK 1 BOTTLE MISC (22:26)
== END 2020-11-26 22:28 | disposition home or self-care (01) ==
PROVIDERS: Emergency Provider Emergency Medicine; PCP Physician Assistant
DX: M62.838 Other muscle spasm (principal)
CPT/HCPCS: 99281

== ENCOUNTER → 2021-02-25 14:11 | Outpatient (CLI) | payer OTHER, SELFPAY ==
[2021-02-25 14:48] LABS: Add Manual Diff / Slide Review NO; Basophils Absolute Auto 100 /uL (0-100); Basophils Percent Auto 2.9 % (0-2); Eosinophils Absolute Auto 100 /uL (0-450); Eosinophils Percent Auto 1.2 % (2-4); Hematocrit 43.5 % (36-46); Lymphocytes Absolute Auto 1100 /uL (1100-4500); Lymphocytes Percent Auto 21.3 % (25-40); Mean Corpuscular HGB Conc 32.2 % (30-36); Mean Corpuscular Hemoglobin 30.5 PG (26-34); Mean Corpuscular Volume 94.8 fL (80-100); Monocytes Absolute Auto 500 /uL (0-900); Monocytes Percent Auto 10.3 % (3-14); Neutrophils Absolute Auto 3200 /uL (1500-7000); Neutrophils Percent Auto 64.3 % (50-75); Platelet Count 218 X10^3/uL (150-400); Red Blood Cell Count 4.58 X10^6/uL (4.0-5.2); Red Cell Distribution Width 14.9 % (11.6-14.8)
[2021-02-25 15:22] LABS: BUN Creatinine Ratio 16.3 (6-22); Blood Urea Nitrogen 15 mg/dL (7-17); Calcium 9.4 mg/dL (8.4-10.2); Carbon Dioxide 28 mmol/L (22-32); Chloride 105 mmol/L (98-107); Estimated Glomerular Filt Rate 58.2 mL/min (>60); Glucose 99 mg/dL (80-110); HEMOLYSIS 20 (0-50); Potassium 4.4 mmol/L (3.4-5.1); Sodium 140 mmol/L (137-145)
== END ==
PROVIDERS: PCP Physician Assistant; Referring Provider Internal Medicine Cardiovascular Disease; Visit Provider Internal Medicine Cardiovascular Disease
DX: I50.32 Chronic diastolic (congestive) heart failure (principal)
CPT/HCPCS: 36415; 80048; 85025

== ENCOUNTER → 2021-04-05 10:50 | Outpatient (CLI) | payer OTHER, SELFPAY ==
--- NOTE | 2021-04-05 | DI.MRI.S_ITS ---
PROCEDURE: MR HEAD/BRAIN WO CON INDICATIONS: 86-year-old female with late onset Alzheimer's disease. TECHNIQUE: Non-contrast axial T1 spin echo, axial T2 fast spin echo, sagittal and axial FLAIR, coronal T2 fast spin echo, axial gradient echo, axial diffusion and ADC through the brain. COMPARISON: None. FINDINGS: Cerebrum, Cerebellum and Brainstem: Moderate cerebral and cerebellar volume loss as well as mild multifocal hyperintensities in the deep and subcortical white matter present. Symmetric hippocampal atrophy noted as well. The diffusion sequence is normal without evidence of acute infarct. No intracranial hemorrhage, mass lesion or midline shift. Basal cisterns and foramen magnum contain appropriate anatomy and vascular flow voids. No evidence of dural or leptomeningeal thickening. Ventricles: Appropriate in size and position. No hydrocephalus. Skull Base: The bony sella, pituitary gland and infundibulum unremarkable. Clivus and craniovertebral relationships are appropriate. Visualized portions of the seventh and eighth cranial nerve complexes and internal auditory canals are within normal limits. Scalp and Calvarium: The scalp is unremarkable. Underlying calvarium has an appropriate marrow signal. Paranasal Sinuses: Visualized portions of the paranasal sinuses are clear. Mastoids: Unremarkable as visualized. No mastoid effusion present. Orbits: The orbits, globes and ocular muscles are unremarkable. IMPRESSION: Generalized symmetric cerebral, cerebellar and hippocampal atrophy and mild white matter chronic ischemic change without intracranial hemorrhage, infarct or mass lesion Approved by: Adrián Cox M.D. on 04/06/2021 at 7:59 .
== END ==
PROVIDERS: PCP Physician Assistant; Referring Provider Internal Medicine; Visit Provider Internal Medicine
DX: G30.1 Alzheimer's disease with late onset (principal); F02.80 Dementia in other diseases classified elsewhere, unspecified severity, without behavioral disturbance, psychotic disturbance, mood disturbance, and anxiety
CPT/HCPCS: 70551

== ENCOUNTER 2022-12-23 12:50 | Emergency (ER) | payer OTHER, SELFPAY ==
[2022-12-23 13:03] VITALS: BP 134/89; PULSE 113; RESP 16; TEMP 36.9; O2SAT 98
[2022-12-23 13:49] LABS: Add Manual Diff / Slide Review NO; Basophils Absolute Auto 0 /uL (0-100); Basophils Percent Auto 0.9 % (0-2); Eosinophils Absolute Auto 0 /uL (0-450); Eosinophils Percent Auto 0.7 % (2-4); Hematocrit 42.2 % (36-46); Hemoglobin 14.2 g/dL (12.0-16.0); Lymphocytes Absolute Auto 900 /uL (1100-4500); Lymphocytes Percent Auto 18.6 % (25-40); Mean Corpuscular HGB Conc 33.6 % (30-36); Mean Corpuscular Hemoglobin 31.9 PG (26-34); Mean Corpuscular Volume 94.9 fL (80-100); Monocytes Absolute Auto 400 /uL (0-900); Monocytes Percent Auto 8.8 % (3-14); Neutrophils Absolute Auto 3400 /uL (1500-7000); Platelet Count 156 X10^3/uL (150-400); Red Blood Cell Count 4.44 X10^6/uL (4.0-5.2); Red Cell Distribution Width 14.8 % (11.6-14.8); White Blood Cell Count 4.7 X10^3/uL (4.5-11.0)
[2022-12-23 14:45] LABS: TSH w/ Reflex to FT4 1.78 uIU/mL (0.47-4.68)
--- NOTE | 2022-12-23 14:48 | ED.AMS ---
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 Patient has a granddaughter in [place] and another grandaughter/son-in-law in [place] who are both willing to come in to the hospital today. Patient has not seen a primary care provider in the last 5 years, APS sent an e-mail to EMS and ask them to check on the patient out of recommendation from one of the granddaughters in [place]. Patient and her were in the home without any food and although pleasant and in good spirits, do not have any resources to help them at this time. They are here for medical screening and social work evaluation with possible placement, the family from [place] are on the way to the ED. Related Data Home Medications Medication Instructions Recorded Confirmed [CALCIUM] ##0 12/22/10 [FISH OIL] ##0 12/22/10 [VITAMIN D] ##0 12/22/10 diltiazem HCl 120 mg 120 mg PO .PRN use for Afib, HR 11/16/18 capsule,extended release 24 hr over 120 (Cardizem CD) omeprazole 20 mg capsule,delayed 20 mg PO .prn GERD 11/16/18 release Previous Rx's Medication Instructions Recorded rivaroxaban 20 mg tablet (Xarelto) 20 mg PO DAILY #90 tabs 11/16/18 varicella-zoster glycoE [id number] 0.5 ml IM ONCE #1 ea 11/16/18 adj(PF) 50 mcg/0.5 mL IM susp, kit (Shingrix (PF)) furosemide 20 mg tablet 10 mg PO QAM #30 tabs 06/07/20 metoprolol tartrate 25 mg tablet 25 mg PO BID #60 tabs 06/07/20 potassium chloride 10 mEq 10 meq PO DAILY #30 caps 06/07/20 capsule,extended release cephalexin 500 mg capsule 500 mg PO BID #10 caps 09/24/20 cyclobenzaprine 10 mg tablet 10 mg PO TID PRN muscle spasm #12 11/26/20 tabs Allergies Allergy/AdvReac Type Severity Reaction Status Date / Time nitrofurantoin AdvReac Mild N/V, JOINT Verified 11/08/20 18:11 PAIN Review of Systems <SHORTY Huerta - Last Filed: 12/24/22 11:13> Review of Systems ROS Unobtainable: All systems reviewed & are unremarkable except as noted in HPI and below Patient History <SHORTY Huerta - Last Filed: 12/24/22 11:13> Medical History Anemia Atrial fibrillation (~2018) Frequent UTI GERD (gastroesophageal reflux disease) (~2016) Headache Hearing loss Hepatitis (~1944) Herpes History of recurrent ear infection History of varicose veins Measles Mitral valve prolapse Mumps Osteoarthritis (~1994) Osteoporosis (~1987) Paroxysmal A-fib Peripheral vascular disease Shoulder pain Vision disorder Surgical History Anesthesia History of bladder surgery History of tonsillectomy and adenoidectomy (~195) Family History Father History of heart disease Mother History of heart disease Social History Smoking Status: Never smoker Smoking Status: Never smoker alcohol intake frequency: holidays/special occasions only Substance Use Type: marijuana Exam <SHORTY Huerta - Last Filed: 12/24/22 11:13> Narrative Exam Narrative: Reviewed vitals signs and nursing notes. General: Pleasant, in no acute distress, thin and appears malnourished, afebrile HEENT: symmetrical facial expressions, moist mucous membranes, neck is supple CV: Irregular rate and rhythm, tachycardic, warm extremities Respiratory: normal work of breathing, without tachypnea or hypoxia. GI: abdomen soft, nondistended, without CVA tenderness bilaterally. MSK: moves all extremities, no weakness, normal tone, ambulatory without deficit Skin: brisk capillary refill, without rash or wound Neuro: clear speech and normal cognition, A&O x3, GCS 15, no focal motor or sensation deficits Initial Vital Signs Initial Vital Signs: Vital Signs Temperature 98.5 F 12/23/22 13:03 Pulse Rate 113 H 12/23/22 13:03 Respiratory Rate 16 12/23/22 13:03 Blood Pressure 134/89 12/23/22 13:03 Pulse Oximetry 98 12/23/22 13:03 Oxygen Delivery Method Room Air 12/23/22 13:03 <Dee Dee Saleem MD - Last Filed: 12/23/22 22:49> Initial Vital Signs Initial Vital Signs: Vital Signs Temperature 98.5 F 12/23/22 13:03 Pulse Rate 113 H 12/23/22 13:03 Respiratory Rate 16 12/23/22 13:03 Blood Pressure 134/89 12/23/22 13:03 Pulse Oximetry 98 12/23/22 13:03 Oxygen Delivery Method Room Air 12/23/22 13:03 Course <SHORTY Huerta - Last Filed: 12/24/22 11:13> Orders Ordered: ED Orders 12/23/22 15:04 EKG-12 Lead Stat Vital Signs Vital signs: Vital Signs - 8 hr 12/23/22 13:03 Temperature 98.5 F Pulse Rate 113 H Respiratory Rate 16 Blood Pressure 134/89 Pulse Oximetry 98 Oxygen Delivery Method Room Air <Dee Dee Saleem MD - Last Filed: 12/23/22 22:49> Orders Ordered: ED Orders 12/23/22 15:04 EKG-12 Lead Stat Vital Signs Vital signs: Vital Signs - 8 hr 12/23/22 13:03 Temperature 98.5 F Pulse Rate 113 H Respiratory Rate 16 Blood Pressure 134/89 Pulse Oximetry 98 Oxygen Delivery Method Room Air MDM - Altered Mental Status <SHORTY Huerta - Last Filed: 12/24/22 11:13> Lab Data 12/23/22 13:41 12/23/22 13:41 Labs: Lab Results 12/23/22 12/23/22 12/23/22 Range/Units 13:41 13:41 13:41 WBC 4.7 (4.5-11.0) X10^3/uL RBC 4.44 (4.0-5.2) X10^6/uL Hgb 14.2 (12.0-16.0) g/dL Hct 42.2 (36-46) % MCV 94.9 (80-100) fL MCH 31.9 (26-34) PG MCHC 33.6 (30-36) % RDW 14.8 (11.6-14.8) % Plt Count 156 (150-400) X10^3/uL Neut % (Auto) 71.0 (50-75) % Lymph % (Auto) 18.6 L (25-40) % [place] % (Auto) 8.8 (3-14) % Eos % (Auto) 0.7 L (2-4) % Baso % (Auto) 0.9 (0-2) % Neut # (Auto) 3400 (2573-9086) /uL Lymph # (Auto) 900 L (0747-1094) /uL [place] # (Auto) 400 (0-900) /uL Eos # (Auto) 0 (0-450) /uL Baso # (Auto) 0 (0-100) /uL PT (10.1-12.7) SECONDS INR (0.9-1.3) Sodium 137 (137-145) mmol/L Potassium 4.0 (3.4-5.1) mmol/L Chloride 103 (98-107) mmol/L Carbon Dioxide 29 (22-32) mmol/L BUN 20 H (7-17) mg/dL Creatinine 0.98 (0.52-1.04) mg/dL Estimated GFR 57 L (>60) mL/min BUN/Creatinine Ratio 20.4 (6-22) Glucose 105 (80-110) mg/dL Calcium 9.2 (8.4-10.2) mg/dL Magnesium 1.9 (1.6-2.3) mg/dL Total Bilirubin 1.4 H (0.2-1.3) mg/dL AST 46 H (14-36) IU/L ALT 33 (<35) IU/L Alkaline Phosphatase 88 (38-126) U/L Total Creatine Kinase 80 (30-135) U/L Total Protein 8.1 (6.3-8.2) g/dL Albumin 4.4 (3.5-5.0) g/dL Globulin 3.7 (1.7-4.1) g/dL Albumin/Globulin Ratio 1.2 (1.0-2.8) Lipase 313 H (23-300) U/L TSH 1.78 (0.47-4.68) uIU/mL 12/23/22 Range/Units 13:41 WBC (4.5-11.0) X10^3/uL RBC (4.0-5.2) X10^6/uL Hgb (12.0-16.0) g/dL Hct (36-46) % MCV (80-100) fL MCH (26-34) PG MCHC (30-36) % RDW (11.6-14.8) % Plt Count (150-400) X10^3/uL Neut % (Auto) (50-75) % Lymph % (Auto) (25-40) % [place] % (Auto) (3-14) % Eos % (Auto) (2-4) % Baso % (Auto) (0-2) % Neut # (Auto) (4922-6930) /uL Lymph # (Auto) (1141-5758) /uL [place] # (Auto) (0-900) /uL Eos # (Auto) (0-450) /uL Baso # (Auto) (0-100) /uL PT 12.6 (10.1-12.7) SECONDS INR 1.1 (0.9-1.3) Sodium (137-145) mmol/L Potassium (3.4-5.1) mmol/L Chloride (98-107) mmol/L Carbon Dioxide (22-32) mmol/L BUN (7-17) mg/dL Creatinine (0.52-1.04) mg/dL Estimated GFR (>60) mL/min BUN/Creatinine Ratio (6-22) Glucose (80-110) mg/dL Calcium (8.4-10.2) mg/dL Magnesium (1.6-2.3) mg/dL Total Bilirubin (0.2-1.3) mg/dL AST (14-36) IU/L ALT (<35) IU/L Alkaline Phosphatase (38-126) U/L Total Creatine Kinase (30-135) U/L Total Protein (6.3-8.2) g/dL Albumin (3.5-5.0) g/dL Globulin (1.7-4.1) g/dL Albumin/Globulin Ratio (1.0-2.8) Lipase (23-300) U/L TSH (0.47-4.68) uIU/mL ECG Data Interpretation: EKG independently reviewed by myself at 105 reveals atrial fibrillation at 105 beats per minute with regular axis and intervals. No STEMI, ST segment changes, arrhythmia, or acute ischemic changes. MDM Narrative Medical decision making narrative: Chief Complaint: Brought in for medical screening as recommended by APS Multiple etiologies for patient's complaint considered including, but not limited to: Dementia, failure to thrive, UTI, dehydration and malnourished I have independently reviewed the patient's vital signs and nursing notes as well as prior records if available. Plan: Medical screening lab work is unremarkable thus far, CBC without abnormality, normal TSH, chemistry without electrolyte abnormalities, total bili 1.4, lipase is elevated but this is less than her prior at 03:52 Course of Care: Social work has seen the patient and we are awaiting family arrival, patient and her are both confused but redirectable, cooperative and pleasant but wonder frequently through the michaels. They will need placement in memory Care and there is a family meeting scheduled for tomorrow. Plan for staying overnight. 1800 patient's family is here, offering support, patient and her are calmly sitting and talking with family. Social considerations that may affect disposition: none Questions are addressed and there is agreement with the plan and for follow-up. I consulted with the ED attending physician Dr. Saleem as needed for higher level of care considerations and they were available for discussion and recommendations regarding plan of care and diagnostic testing. Son from [place] is available to take his mother home at this time. <Dee Dee Saleem MD - Last Filed: 12/23/22 22:49> Lab Data Labs: Lab Results 12/23/22 12/23/22 12/23/22 Range/Units 13:41 13:41 13:41 WBC 4.7 (4.5-11.0) X10^3/uL RBC 4.44 (4.0-5.2) X10^6/uL Hgb 14.2 (12.0-16.0) g/dL Hct 42.2 (36-46) % MCV 94.9 (80-100) fL MCH 31.9 (26-34) PG MCHC 33.6 (30-36) % RDW 14.8 (11.6-14.8) % Plt Count 156 (150-400) X10^3/uL Neut % (Auto) 71.0 (50-75) % Lymph % (Auto) 18.6 L (25-40) % [place] % (Auto) 8.8 (3-14) % Eos % (Auto) 0.7 L (2-4) % Baso % (Auto) 0.9 (0-2) % Neut # (Auto) 3400 (3067-5878) /uL Lymph # (Auto) 900 L (6210-4548) /uL [place] # (Auto) 400 (0-900) /uL Eos # (Auto) 0 (0-450) /uL Baso # (Auto) 0 (0-100) /uL PT (10.1-12.7) SECONDS INR (0.9-1.3) Sodium 137 (137-145) mmol/L Potassium 4.0 (3.4-5.1) mmol/L Chloride 103 (98-107) mmol/L Carbon Dioxide 29 (22-32) mmol/L BUN 20 H (7-17) mg/dL Creatinine 0.98 (0.52-1.04) mg/dL Estimated GFR 57 L (>60) mL/min BUN/Creatinine Ratio 20.4 (6-22) Glucose 105 (80-110) mg/dL Calcium 9.2 (8.4-10.2) mg/dL Magnesium 1.9 (1.6-2.3) mg/dL Total Bilirubin 1.4 H (0.2-1.3) mg/dL AST 46 H (14-36) IU/L ALT 33 (<35) IU/L Alkaline Phosphatase 88 (38-126) U/L Total Creatine Kinase 80 (30-135) U/L Total Protein 8.1 (6.3-8.2) g/dL Albumin 4.4 (3.5-5.0) g/dL Globulin 3.7 (1.7-4.1) g/dL Albumin/Globulin Ratio 1.2 (1.0-2.8) Lipase 313 H (23-300) U/L TSH 1.78 (0.47-4.68) uIU/mL 12/23/22 Range/Units 13:41 WBC (4.5-11.0) X10^3/uL RBC (4.0-5.2) X10^6/uL Hgb (12.0-16.0) g/dL Hct (36-46) % MCV (80-100) fL MCH (26-34) PG MCHC (30-36) % RDW (11.6-14.8) % Plt Count (150-400) X10^3/uL Neut % (Auto) (50-75) % Lymph % (Auto) (25-40) % [place] % (Auto) (3-14) % Eos % (Auto) (2-4) % Baso % (Auto) (0-2) % Neut # (Auto) (9403-8886) /uL Lymph # (Auto) (1218-6440) /uL [place] # (Auto) (0-900) /uL Eos # (Auto) (0-450) /uL Baso # (Auto) (0-100) /uL PT 12.6 (10.1-12.7) SECONDS INR 1.1 (0.9-1.3) Sodium (137-145) mmol/L Potassium (3.4-5.1) mmol/L Chloride (98-107) mmol/L Carbon Dioxide (22-32) mmol/L BUN (7-17) mg/dL Creatinine (0.52-1.04) mg/dL Estimated GFR (>60) mL/min BUN/Creatinine Ratio (6-22) Glucose (80-110) mg/dL Calcium (8.4-10.2) mg/dL Magnesium (1.6-2.3) mg/dL Total Bilirubin (0.2-1.3) mg/dL AST (14-36) IU/L ALT (<35) IU/L Alkaline Phosphatase (38-126) U/L Total Creatine Kinase (30-135) U/L Total Protein (6.3-8.2) g/dL Albumin (3.5-5.0) g/dL Globulin (1.7-4.1) g/dL Albumin/Globulin Ratio (1.0-2.8) Lipase (23-300) U/L TSH (0.47-4.68) uIU/mL MDM Narrative Medical decision making narrative: Chief Complaint: Brought in for medical screening as recommended by APS Multiple etiologies for patient's complaint considered including, but not limited to: Dementia, failure to thrive, UTI, dehydration and malnourished I have independently reviewed the patient's vital signs and nursing notes as well as prior records if available. Plan: Medical screening lab work is unremarkable thus far, CBC without abnormality, normal TSH, chemistry without electrolyte abnormalities, total bili 1.4, lipase is elevated but this is less than her prior at 03:52 Course of Care: Social work has seen the patient and we are awaiting family arrival, patient and her are both confused but redirectable, cooperative and pleasant but wonder frequently through the michaels. They will need placement in memory Care and there is a family meeting scheduled for tomorrow. Plan for staying overnight. 1800 patient's family is here, offering support, patient and her are calmly sitting and talking with family. Social considerations that may affect disposition: none Questions are addressed and there is agreement with the plan and for follow-up. I consulted with the ED attending physician Dr. Mayers as needed for higher level of care considerations and they were available for discussion and recommendations regarding plan of care and diagnostic testing. Son from [facility] is available to take his mother home at this time. Discharge Plan Departure Patient Disposition: Home Clinical Impression: Paroxysmal A-fib, Encounter for general health examination, History of dementia Instructions: DI for Alzheimer Disease Activity Restrictions/Additional Instructions: Thank you for coming up to help your parents. Dementia can be such a frustrating diagnosis for everybody involved. Unfortunately your step mother has progressed to the point that unless you are able to arrange for 24 hour home care, a dementia facility is probably going to be your next most appropriate step to provide safe care for him. If you find that you are getting worse or develop any new symptoms, please feel free to return to the emergency department for further evaluation. Prescriptions: No Action [CALCIUM] Qty: 0 [VITAMIN D] Qty: 0 [FISH OIL] Qty: 0 diltiazem HCl [Cardizem CD] 120 mg capsule,extended release 24hr 120 mg PO .PRN omeprazole 20 mg capsule,delayed release(DR/EC) 20 mg PO .prn Xarelto 20 mg tablet 20 mg PO DAILY Qty: 90 0RF Rx Instructions: must administer with a meal/food Shingrix (PF) 50 mcg/0.5 mL suspension for reconstitution 0.5 ml IM ONCE Qty: 1 0RF Rx Instructions: as a single dose metoprolol tartrate 25 mg tablet 25 mg PO BID Qty: 60 0RF furosemide 20 mg tablet 10 mg PO QAM Qty: 30 0RF potassium chloride 10 mEq capsule, extended release 10 meq PO DAILY Qty: 30 0RF cephalexin 500 mg capsule 500 mg PO BID Qty: 10 0RF cyclobenzaprine 10 mg tablet 10 mg PO TID PRN (Reason: muscle spasm) Qty: 12 0RF Referrals: Maryjo Zamora PA-C [Primary Care Provider] - Stand Alone Forms: Patient Portal/API
[2022-12-23 15:07] LABS: INR 1.1 (0.9-1.3); Prothrombin Time 12.6 SECONDS (10.1-12.7)
[2022-12-23 15:11] LABS: Alanine Aminotransferase 33 IU/L (<35); Albumin 4.4 g/dL (3.5-5.0); Albumin Globulin Ratio 1.2 (1.0-2.8); Alkaline Phosphatase 88 U/L (38-126); Aspartate Aminotransferase 46 IU/L (14-36); BUN Creatinine Ratio 20.4 (6-22); Bilirubin Total 1.4 mg/dL (0.2-1.3); Blood Urea Nitrogen 20 mg/dL (7-17); Calcium 9.2 mg/dL (8.4-10.2); Carbon Dioxide 29 mmol/L (22-32); Chloride 103 mmol/L (98-107); Creatine Kinase 80 U/L (30-135); Estimated Glomerular Filt Rate 57 mL/min (>60); Globulin 3.7 g/dL (1.7-4.1); Glucose 105 mg/dL (80-110); HEMOLYSIS < 15 (0-50); Lipase 313 U/L (23-300); Magnesium 1.9 mg/dL (1.6-2.3); Sodium 137 mmol/L (137-145); Total Protein 8.1 g/dL (6.3-8.2)
--- NOTE | 2022-12-23 19:15 | CM.SWNOTE ---
CLOTHING MAN Note Patient presents to ED via EMS with spouse. A family member called for welfare check, APS was assigned and assessed patient and spouse. There was reported concern for lack of medical care, Dementia, wandering the neighborhood and lack of food, access to food and self neglect. Patient's PCP is Maryjo Zamora, it is reported that patient has not been to PCP in quite some time. Patient has group health Medicare insurance. CLOTHING MAN calls FROYLAN Esparza and it is reported that he spoke with granddaughter Nany (Ph. # [phone]) who reports that she is trying to become guardian or DPOA but lives in [place], [place]. It is reported that there is family in [facility] as well. Isaias reports that patient and spouse cannot return home unless a family member go home with him as it is unsafe for patient and spouse to return to home. Isaias reports that patient and spouse were wandering around the street, they had no idea when they last ate and there was no food in the house. There is concern for patient's ability to pay bills and manage needs. CLOTHING MAN identifies in EMR that patient has step-son named Ludin (Ph. # [phone]) CLOTHING MAN calls Ludin, he reports that patient and spouse have not been wanting to go to the doctor, he states that he lives in [place] and is planning to head towards [place] now. CLOTHING MAN asks about next steps with family plan, he states he does not know at this time and will work with family to discuss this further. Son states that he has identified a rapid and recent decline for patient and spouse with their Dementia. CLOTHING MAN asks who is going to be DPOA and it is not identified at this time. Son states that they were both independent and driving a few years ago. CLOTHING MAN informs them that they need someone present with them if they are going to d/c and family needs to identify next steps, he states that he is on his way to . This phone call was around 1400 and at 1900 Son is not yet present. CLOTHING MAN calls Nany, she reports that she plans to be guardian or DPOA. She states that Ludin plans to stay with patient and spouse. She states she has been in touch with APS since October after her visit to patient and spouse. She states that patient and spouse have been reluctant to help. Nany reports that daughter Lisa is out of town and unable to talk at this time. CLOTHING MAN previously called Lisa and leave requesting return call, Lisa calls back but states she may not have service. (Ph. # [phone]) Lisa resides in [place], [place]. CLOTHING MAN calls Isaias GALEANO SW (Ph. # [phone]/ [phone]) and leaves regarding patient's family member Ludin not yet arriving at ED and patient and spouse are still boarding in ED. CLOTHING MAN provides RN with Senior resource guide to RN to provide to son elena Noland, reviews patient and spouse with ED provider. Plan: family member to scrap picker patient and spouse and stay with them at home, family to seek higher level of care and identify watermelon inspector care plan. patient and spouse are medically clear for d/c but cannot d/c to home alone. Le Brooks, EXTERNAL RELATIONS MANAGER
== END 2022-12-23 23:08 | disposition home or self-care (01) ==
PROVIDERS: Emergency Provider Nurse Practitioner Critical Care Medicine; PCP Physician Assistant
DX: I48.20 Chronic atrial fibrillation, unspecified (principal); Z79.01 Long term (current) use of anticoagulants; R07.9 Chest pain, unspecified; F03.90 Unspecified dementia, unspecified severity, without behavioral disturbance, psychotic disturbance, mood disturbance, and anxiety
CPT/HCPCS: 36415; 80053; 82550; 83690; 83735; 84443; 85025; 85610; 93005; 93010; 99281; 99284